=== PATIENT | female | born 1980 | race Caucasian/White ===

== ENCOUNTER 2019-07-25 14:05 | Emergency (ER) | payer SELFPAY ==
[2019-07-25 14:06] VITALS: BP 135/87; PULSE 97; RESP 17; O2SAT 100
--- NOTE | 2019-07-25 14:58 | ED.UPPEXIN ---
HPI - Extremity Injury (Upper) General Chief Complaint: Extremity Injury, Upper Stated Complaint: Sinus Issues, Left Shoulder Pain Time Seen by Provider: 07/25/19 14:55 Source: patient Mode of arrival: ambulatory Limitations: no limitations History of Present Illness HPI narrative: The pt is a 38 y/o female who presents to the ED c/o left shoulder pain onset 1.5 weeks ago. Pt states that when she raises her arm, it radiates to her left elbow. Pt states it feels like she is being stabbed with a pin. She states that the pain worsens when she lifts her arm, but has gained relief from being in her hot tub and 800 mg Ibuprofen. 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 She notes that she did fall yesterday while leaving her sister's house, and that she caught herself with her left hand. Pt reports that her left arm has been cold to the touch. She also reports sinus issues; mucus in her eyes, sinus drainage, resolved sore throat, chills, and diaphoresis. She denies any LUE discoloration. Pt notes that she has a PMHx of asthma, arthritis, DDD, spasms, and endometriosis. Pt also reports a PSHx of C6-C7 fusion and laparoscopies for endometriosis. Pt states that she smokes cigarettes and marijuana. MD complaint: injury to: left and shoulder Onset (ago): week(s) (1.5) Other injuries: none Handedness: left Relieving factors: medication (Ibuprofen 800 mg) and other (Sitting in her hot tub) Exacerbating factors: movement of extremity (LUE) Associated symptoms: other (LUE cold to touch, mucus in her eyes, sinus drainage, resolved sore throat, chills, and diaphoresis) Treatments prior to arrival: NSAIDS (Ibuprofen) Related Data Allergies Allergy/AdvReac Type Severity Reaction Status Date / Time erythromycin base Allergy Unknown Unknown Verified 07/25/19 14:11 ketorolac Allergy Unknown Unknown Verified 07/25/19 14:11 tramadol Allergy Unknown Unknown Verified 07/25/19 14:11 morphine AdvReac Unknown HEADACHE Verified 07/25/19 14:11 Review of Systems Review of Systems: All systems reviewed & are unremarkable except as noted in HPI and below Constitutional: Constitutional: Reports chills, Reports excessive sweating and Reports other (LUE cold to touch) Eyes: Eyes: Reports other ( mucus in her eyes ) ENT: Reports sore throat (Resolved) and Reports other (Sinus drainage) Musculoskeletal: Musculoskeletal: Reports arthralgias (Left shoulder) Integumentary/Breasts: Skin/Breast: Denies other (LUE discoloration) [facility] Past Medical History Medical History (Updated 07/25/19 @ 15:43 by Ashely Bocanegra MD) Arthritis Asthma Degenerative disc disease Endometriosis PTSD (post-traumatic stress disorder) Surgical History Surgical History (Updated 07/25/19 @ 15:19 by Cristian Alejandro) H/O laparoscopy for endometriosis S/P cervical spinal fusion C6-C7 Family History Family History (Updated 11/05/16 @ 13:20 by DOCTOR UNKNOWN) Other Cerebrovascular accident Social History Social History (Updated 07/25/19 @ 15:19 by Cristian Alejandro) Smoking status: Smoker, status unknown Alcohol intake: current Substance use type: marijuana Gender identity (if verbalized by the patient): Female Comments PCP: Francine Solnao [employer] Exam Const: General: cooperative, no acute distress and alert Nutritional Appearance: well nourished Orientation/consciousness: patient oriented x3 Limitations: no limitations HENMT: Mouth: Yes lip normal and Yes moist mucous membranes Resp: Effort & Inspection: normal respiratory effort Auscultation: wheezes (Occasional) Cardio: Rate: regular rate Rhythm: regular rhythm GI: GI Palp: Yes Soft to palpation and No Tenderness to palpation present (GI) Auscultation: normal bowel sounds Back/Spine/Pelvis: Cervical Spine: Cervical spine tenderness (Lower) Skin: General skin exam: normal color and other (BUE feel the same temperature [place])
--- NOTE | 2019-07-25 15:20 | PC.NURSE ---
pt refuses to answer past medical hx. pt states talking about past makes her anxious. pt only wants to discuss current shoulder pain. pt somewhat aggressive to nurse
== END 2019-07-25 15:59 | disposition home or self-care (01) ==
PROVIDERS: Emergency Provider Emergency Medicine; PCP Nurse Practitioner Family
DX: M54.12 Radiculopathy, cervical region (principal); M19.90 Unspecified osteoarthritis, unspecified site; J45.909 Unspecified asthma, uncomplicated; N80.9 Endometriosis, unspecified; Z98.1 Arthrodesis status; F17.210 Nicotine dependence, cigarettes, uncomplicated
CPT/HCPCS: 99283

== ENCOUNTER 2020-01-17 15:07 | Emergency (ER) | payer SELFPAY ==
[2020-01-17 15:32] VITALS: BP 95/64; PULSE 97; RESP 18; TEMP 37.4; O2SAT 96
[2020-01-17 16:58] VITALS: BP 114/87; PULSE 89; RESP 21; O2SAT 97
--- NOTE | 2020-01-17 17:13 | ED.GENADULT ---
HPI - General Adult General Chief complaint: Unspecified <PETRA Carr Last Filed: 01/17/20 17:34> Stated complaint: lump on left side <PETRA Carr Last Filed: 01/17/20 17:34> Time Seen by Provider: 01/17/20 16:35 <PETRA Carr Last Filed: 01/17/20 17:34> Source: patient <PETRA Carr Last Filed: 01/17/20 17:34> Mode of arrival: ambulatory <PETRA Carr Last Filed: 01/17/20 17:34> Limitations: no limitations <PETRA Carr Last Filed: 01/17/20 17:34> History of Present Illness HPI narrative: Patient presents with chief complaint of bites all over her body that presented after her nature hike on 01-09-20. Patient states that they state their few days. Patient reports that her dog was covered in multiple ticks or fleas. Patient states that the spots are not very itchy but when she popped them there was a burning sensation. Patient also wants evaluated a small cystlike area noted to her left outer breast yesterday. Patient states that she massage the area a lot yesterday and today when she woke up it was very sore. Patient wonders if it is due to her implants or wire bra. Patient states that she just ended her menstrual cycle and also has a history of fibro-cystic breast tissue. <Corinne Corona PA-C - Last Filed: 01/17/20 17:34> Related Data Allergies/adverse reactions: Allergies Allergy/AdvReac Type Severity Reaction Status Date / Time erythromycin base Allergy Unknown Unknown Verified 07/25/19 14:11 ketorolac Allergy Unknown Unknown Verified 07/25/19 14:11 tramadol Allergy Unknown Unknown Verified 07/25/19 14:11 morphine AdvReac Unknown HEADACHE Verified 07/25/19 14:11 <PETRA Carr Last Filed: 01/17/20 17:34> Review of Systems Review of Systems: Narrative: CONSTITUTIONAL: Denies fever, chills, or sweats. EYES: Denies visual changes, redness, or discharge. ENT: Denies rhinorrhea, congestion, sore throat, or otalgia. CARDIOVASCULAR: Reports breast mass denies chest pain, palpitations, or edema. RESPIRATORY: Denies cough or dyspnea. GASTROINTESTINAL: Denies abdominal pain, nausea, vomiting, or diarrhea. GENITOURINARY: Denies dysuria or hematuria. SKIN: Reports rash denies itching. MUSCULOSKELETAL: Denies back pain, joint pain, or myalgia. NEUROLOGIC: Denies headache, numbness, dizziness, or weakness. PSYCHIATRIC: Denies anxiety or depression. <Corinne Corona PA-C - Last Filed: 01/17/20 17:34> PMFSH Past Medical History Medical History: Medical History (Updated 01/17/20 @ 17:31 by Corinne Corona PA-C) Arthritis Asthma Degenerative disc disease Endometriosis PTSD (post-traumatic stress disorder) <Corinne Corona PA-C - Last Filed: 01/17/20 17:34> Surgical History Surgical History: Surgical History (Updated 07/25/19 @ 15:19 by Cristian Alejandro) H/O laparoscopy for endometriosis S/P cervical spinal fusion C6-C7 <Corinne Corona PA-C - Last Filed: 01/17/20 17:34> Family History Family History: Family History (Updated 11/05/16 @ 13:20 by DOCTOR UNKNOWN) Other Cerebrovascular accident <Corinne Corona PA-C - Last Filed: 01/17/20 17:34> Social History Social History: Social History (Updated 07/25/19 @ 15:19 by Cristian Alejandro) Smoking status: Smoker, status unknown Alcohol intake: current Substance use type: marijuana Gender identity (if verbalized by the patient): Female <Corinne Corona PA-C - Last Filed: 01/17/20 17:34> Exam Narrative: Exam Narrative: GENERAL: Well-appearing, well-nourished, and in no acute distress. HEAD: Normocephalic, atraumatic. EYES: PERRLA and EOMI. ENT: Nares clear, no rhinorrhea or epistaxis. Mucous membranes moist. Oropharynx without tonsillar hypertrophy exudate or other lesions. Bilateral TMs pearly logan nonbulging NECK: Supple. No adenopathy or masses. No carotid bruits or JVD CHEST: Approximately 1 cm mob
== END 2020-01-17 17:30 | disposition home or self-care (01) ==
PROVIDERS: Emergency Provider Emergency Medicine; PCP Nurse Practitioner Family
DX: N60.02 Solitary cyst of left breast (principal); T14.8XXA Other injury of unspecified body region, initial encounter; J45.909 Unspecified asthma, uncomplicated; N80.9 Endometriosis, unspecified; N60.19 Diffuse cystic mastopathy of unspecified breast; W57.XXXA Bitten or stung by nonvenomous insect and other nonvenomous arthropods, initial encounter
CPT/HCPCS: 99283; 99284

== ENCOUNTER 2020-02-15 09:49 | Emergency (ER) | payer SELFPAY ==
--- NOTE | ~2020-02-15 | CT_ITS ---
EXAMINATION: CT abdomen pelvis wo con DATE: 02/15/2020 10:54 INDICATION: Left flank pain TECHNIQUE: Computed tomography (CT) of the abdomen and pelvis was performed without intravenous contr ast. The dose-length product (DLP) was 171.44 mGy-cm. Automated exposure control and iterative recons truction technique were employed. COMPARISON: None FINDINGS: The lung bases are clear. The heart size is normal. The liver, spleen, pancreas, gallbladde r, and adrenal glands are normal. The right kidney is unremarkable. There is a 4 mm stone of the left kidney lower pole. There are phleboliths of the pelvis.. No hydronephrosis or hydroureter is seen. N o ureteral or bladder stones are identified. There is no free intraperitoneal gas or evidence of radha l obstruction. The appendix is normal. The visualized osseous structures are unremarkable. IMPRESSION: 1. 4 mm nonobstructing stone of the left kidney lower pole. Reviewed, dictated and finalized at location A.
[2020-02-15 10:10] VITALS: BP 93/50; PULSE 78; RESP 18; O2SAT 100
--- NOTE | 2020-02-15 10:22 | PC.NURSE ---
Patient refusing IV at this time, patient reports that she does not want that on her bill and that she can take oral medications if they are necessary.
[2020-02-15 10:43] LABS: Basophils Absolute Auto 0.1 K/mm3 (0.0-0.1); Basophils Percent Auto 0.5 % (0.2-1.2); Eosinophils Absolute Auto 0.1 K/mm3 (0-0.3); Eosinophils Percent Auto 0.8 % (0-4.4); Hematocrit 40.2 % (37.0-47.0); Hemoglobin 13.6 g/dL (12.0-15.0); Immature Granulocyte Absolute 0.08 K/mm3 (0.00-0.031); Immature Granulocyte Percent A 0.6 % (0-0.5); Lymphocytes Absolute Auto 1.38 K/mm3 (0.9-3.2); Lymphocytes Percent Auto 10.5 % (18.3-44.2); Mean Corpuscular HGB Conc 33.8 g/dl (32-36); Mean Corpuscular Hemoglobin 30.6 pg (26-34); Mean Corpuscular Volume 90.5 fl (80-100); Monocytes Percent Auto 7.8 % (2.6-8.5); Neutrophils Absolute Auto 10.5 K/mm3 (1.3-6.7); Neutrophils Percent Auto 79.8 % (45.5-73.1); Platelet Count Result 179 k/mm3 (150-375); Red Blood Count 4.44 M/mm3 (4.2-5.4); Red Cell Distribution Width 12.4 % (11.5-14.5); White Blood Count 13.2 K/mm3 (4.5-10.0)
[2020-02-15 10:47] LABS: Add Urine Microscopic? YES; Appearance Urine Cloudy (Clear); Bacteria Urine Trace /hpf; Bilirubin Urine Negative (Negative); Blood Urine 3+ (Negative); Color Urine Yellow (Yellow); Glucose Urine UA Negative (Negative); Ketones Urine Negative (Negative); Leukocyte Esterase Ur 3+ LEU/UL (Negative); Mucus Urine Heavy /lpf; Nitrate Urine Negative (Negative); Protein Urine 2+ mg/dL (Negative); RBC Urine >75 /hpf (0-2); Specific Grav Ur 1.015 (1.001-1.035); Squamous Epithelial Cell Urine Moderate /hpf (Few); Urobilinogen Urine Negative mg/dL (<2.0); WBC Urine >75 /hpf
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
[2020-02-15 10:51] LABS: Anion Gap 5 mmol/L (8-16); Blood Urea Nitrogen 8 mg/dL (7-17); Calcium 8.5 mg/dL (8.4-10.2); Carbon Dioxide 25 mmol/L (22-30); Chloride 105 mmol/L (98-107); Estimated Glomerular Filt Rate > 60; Glucose 108 mg/dL (65-105); Sodium 135 mmol/L (137-145)
[2020-02-15] MEDS: METOCLOPRAMIDE HCL INJ 10 MG/2 ML VIAL IV PUSH (11:49)
[2020-02-15] MEDS: SODIUM CHLORIDE 0.9% IV 1,000 ML 999 ML IV CONT (11:50)
[2020-02-15] MEDS: diphenhydrAMINE HCl INJ 50 MG/ML VIAL 25 MG IV PUSH (11:50)
[2020-02-15] MEDS: PHENAZOPYRIDINE HCL 100 MG TABLET 200 MG PO (12:17)
[2020-02-15] MEDS: metroNIDAZOLE 250 MG TABLET 2000 MG PO (12:18)
[2020-02-15 13:18] VITALS: BP 122/78; PULSE 78; RESP 18; O2SAT 99
== END 2020-02-15 13:19 | disposition home or self-care (01) ==
PROVIDERS: Emergency Medicine Emergency Medical Services; Emergency Provider Emergency Medicine; PCP Nurse Practitioner Family
DX: N39.0 Urinary tract infection, site not specified (principal); M19.90 Unspecified osteoarthritis, unspecified site; J45.909 Unspecified asthma, uncomplicated; N80.9 Endometriosis, unspecified; Z98.1 Arthrodesis status
CPT/HCPCS: 36415; 74176; 80048; 81001; 81025; 85025; 87077; 87086; 87088; 96361; 96365; 96367; 96375; 99284; A9270; J0131; J0696; J1200; J2765; J3360; J7030

== ENCOUNTER 2020-11-02 10:25 | Emergency (ER) | payer OTHER, SELFPAY ==
[2020-11-02 10:28] VITALS: BP 115/80; PULSE 80; RESP 16; TEMP 36.8; O2SAT 100
[2020-11-02 11:08] LABS: Add Urine Microscopic? YES; Appearance Urine Cloudy (Clear); Bacteria Urine Trace /hpf; Bilirubin Urine Negative (Negative); Blood Urine Negative (Negative); Color Urine Yellow (Yellow); Glucose Urine UA Negative (Negative); Ketones Urine 1+ mg/dL (Negative); Leukocyte Esterase Ur Negative LEU/UL (Negative); Mucus Urine Rare /lpf; Nitrate Urine Negative (Negative); Protein Urine Negative (Negative); Specific Grav Ur 1.017 (1.001-1.035); Squamous Epithelial Cell Urine Many /hpf (Few); Urobilinogen Urine Negative mg/dL (<2.0); WBC Urine 0-3 /hpf
[2020-11-02] MEDS: ONDANSETRON INJ 4 MG/2 ML VIAL IV PUSH (11:27)
[2020-11-02] MEDS: SODIUM CHLORIDE 0.9% IV 1,000 ML 999 ML IV CONT (11:27)
[2020-11-02] MEDS: FAMOTIDINE 20 MG/2 ML VIAL IV PUSH (11:29)
[2020-11-02] MEDS: diazePAM INJ (*CRX) 10 MG/2 ML SYRINGE 2.5 MG IV PUSH (11:30)
[2020-11-02 11:34] LABS: Basophils Absolute Auto 0.1 K/mm3 (0.0-0.1); Basophils Percent Auto 0.7 % (0.2-1.2); Eosinophils Percent Auto 0.2 % (0-4.4); Hematocrit 41.4 % (37.0-47.0); Hemoglobin 14.2 g/dL (12.0-15.0); Immature Granulocyte Absolute 0.04 K/mm3 (0.00-0.031); Immature Granulocyte Percent A 0.5 % (0-0.5); Lymphocytes Absolute Auto 1.38 K/mm3 (0.9-3.2); Lymphocytes Percent Auto 15.8 % (18.3-44.2); Mean Corpuscular HGB Conc 34.3 g/dl (32-36); Mean Corpuscular Volume 90.4 fl (80-100); Mean Platelet Volume 11.5 fl (7.4-10.4); Monocytes Absolute Auto 0.7 K/mm3 (0.1-0.6); Neutrophils Absolute Auto 6.5 K/mm3 (1.3-6.7); Neutrophils Percent Auto 74.8 % (45.5-73.1); Platelet Count Result 167 k/mm3 (150-375); Red Blood Count 4.58 M/mm3 (4.2-5.4); Red Cell Distribution Width 12.8 % (11.5-14.5); White Blood Count 8.7 K/mm3 (4.5-10.0)
[2020-11-02 13:21] LABS: Alanine Aminotransferase 12 U/L (4-35); Albumin Level 3.3 g/dL (3.5-5.1); Alkaline Phosphatase 50 U/L (38-126); Anion Gap 1 mmol/L (8-16); Aspartate Amino Transferase 25 U/L (14-36); Bilirubin,Total 0.2 mg/dL (0.2-1.3); Blood Urea Nitrogen 12 mg/dL (7-17); Calcium 8.1 mg/dL (8.4-10.2); Carbon Dioxide 26 mmol/L (22-30); Chloride 111 mmol/L (98-107); Estimated CRCL calculation 91 ml/min; Estimated Glomerular Filt Rate > 60; Glucose 75 mg/dL (65-105); Lipase 93 U/L (23-300); Potassium 3.8 mmol/L (3.4-5.0); Sodium 138 mmol/L (137-145)
--- NOTE | 2020-11-02 13:34 | ED.GENADULT ---
HPI - General Adult General Chief complaint: Nausea/Vomiting/Diarrhea Stated complaint: ABD PAIN Time Seen by Provider: 11/02/20 10:30 Source: patient and RN notes reviewed Mode of arrival: EMS Limitations: no limitations History of Present Illness HPI narrative: Patient is a 40-year-old female who presented to emergency department with nausea vomiting diarrhea that began acutely today patient noted cramping throughout the abdomen with multiple episodes of emesis and diarrhea patient denies sick contacts similar occurrence in the past did not take anything for symptoms presents per EMS appears uncomfortable but not distressed Related Data Allergies Allergy/AdvReac Type Severity Reaction Status Date / Time erythromycin base Allergy Unknown Unknown Verified 11/02/20 11:01 ketorolac Allergy Unknown Unknown Verified 11/02/20 11:01 tramadol Allergy Unknown Unknown Verified 11/02/20 11:01 morphine AdvReac Unknown HEADACHE Verified 11/02/20 11:01 Review of Systems Review of Systems: All systems reviewed & are unremarkable except as noted in HPI and below PMFSH Past Medical History Medical History (Updated 11/02/20 @ 13:37 by Gorge Delcid PA-C) Arthritis Asthma Degenerative disc disease Endometriosis PTSD (post-traumatic stress disorder) Surgical History Surgical History H/O laparoscopy for endometriosis S/P cervical spinal fusion C6-C7 Family History Family History Other Cerebrovascular accident Social History Social History Smoking status: Smoker, status unknown Alcohol intake: current Substance use type: marijuana Gender identity (if verbalized by the patient): Female Exam Narrative: Exam Narrative: GENERAL: Ill-appearing, well-nourished, uncomfortable and in no acute distress. HEAD: Normocephalic, atraumatic. EYES: PERRLA and EOMI. ENT: Nares clear, no rhinorrhea or epistaxis. Mucous membranes moist. CHEST: Clear to auscultation. No respiratory distress. No wheezes rales or rhonchi HEART: Regular rate and rhythm. No murmur heard. Normal peripheral pulses. ABDOMEN: Soft, generalized tenderness no rebound or guarding, nondistended, normal active bowel sounds. EXTREMITIES: Normal range of motion. No edema. SKIN: Warm, dry, no rash. NEURO: No focal deficits. Alert and oriented x3. PSYCH: Normal mood and affect. Course Course Emergency Course: Patient evaluated no high risk changes in the blood work or imaging will be tested for Covid advised to follow with primary care she is aware that primary care is the only way for her to obtain her results she agrees with this plan had marked improvement with medications and will be discharged home Consultations Consultation #1: Discussed case with primary care doctor's office who is aware of the case and will follow up with the patient Vital Signs Vital signs: Vital Signs Temperature 98.3 F 11/02/20 10:28 Pulse Rate 80 11/02/20 10:28 Respiratory Rate 16 11/02/20 10:28 Blood Pressure 115/80 11/02/20 10:28 Pulse Oximetry 100 11/02/20 10:28 Temperature 98.3 F 11/02/20 10:28 Pulse Rate 80 11/02/20 10:28 Respiratory Rate 16 11/02/20 10:28 Blood Pressure 115/80 11/02/20 10:28 Pulse Oximetry 100 11/02/20 10:28 Medical Decision Making [facility] Narrative Medical decision making narrative: Patient in the room in no distress aware of case findings treatment plan and diagnosis aware of case findings treatment plan and diagnosis will be discharged with follow-up with primary care agrees with this plan Vital Signs Vital Signs: Vital Signs Temperature 98.3 F 11/02/20 10:28 Pulse Rate 80 11/02/20 10:28 Respiratory Rate 16 11/02/20 10:28 Blood Pressure 115/80 11/02/20 10:28 Pulse Oximetry 100 11/02/20 10:28 Temperature 98.3 F 11/02/20 10:
[2020-11-02 14:10] VITALS: BP 103/81; PULSE 90; RESP 16; O2SAT 100
[2020-11-03 16:57] LABS: SARS-CoV-2 RNA PCR Negative
== END 2020-11-02 14:10 | disposition home or self-care (01) ==
PROVIDERS: Emergency Medicine Emergency Medical Services; Emergency Provider Emergency Medicine; PCP Nurse Practitioner Family
DX: R10.84 Generalized abdominal pain (principal); Z20.822 Contact with and (suspected) exposure to COVID-19; M19.90 Unspecified osteoarthritis, unspecified site; J45.909 Unspecified asthma, uncomplicated; N80.9 Endometriosis, unspecified
CPT/HCPCS: 36415; 80053; 81001; 81025; 83690; 85025; 96361; 96365; 96375; 99284; C9803; J0131; J2405; J3360; J7030; U0003; U0005

== ENCOUNTER 2021-05-05 12:02 | Emergency (ER) | payer OTHER, SELFPAY ==
[2021-05-05 12:15] VITALS: BP 109/85; PULSE 104; RESP 14; TEMP 36.4; O2SAT 94
--- NOTE | 2021-05-05 12:40 | ED.BACK ---
HPI - Back Pain/Injury General Chief Complaint: Fall Stated Complaint: bruising to legs after couch falling on her Time Seen by Provider: 05/05/21 12:21 Source: patient Mode of arrival: ambulatory Limitations: no limitations History of Present Illness HPI Narrative: Patient is a 40-year-old female complaining of body aches, right lower back pain, bilateral knee pain, bilateral upper extremity pain, after lifting a heavy couch while trying to move it yesterday. Patient denies any fall or direct injury. Patient denies any weakness, numbness, or incontinence. Timing: constant Pain scale (0-10): 8 Quality: aching Exacerbating factors: movement and lifting Relieving factors: immobilization Context: while lifting Associated symptoms: denies other symptoms Related Data Allergies Allergy/AdvReac Type Severity Reaction Status Date / Time erythromycin base Allergy Unknown Unknown Verified 11/02/20 11:01 ketorolac Allergy Unknown Unknown Verified 11/02/20 11:01 tramadol Allergy Unknown Unknown Verified 11/02/20 11:01 morphine AdvReac Unknown HEADACHE Verified 11/02/20 11:01 Review of Systems Review of Systems: All systems reviewed & are unremarkable except as noted in HPI and below Constitutional: Constitutional: Reports as per HPI [facility] Past Medical History Medical History (Updated 05/05/21 @ 12:44 by Sanchez Regalado MD) Arthritis Asthma Degenerative disc disease Endometriosis PTSD (post-traumatic stress disorder) Surgical History Surgical History H/O laparoscopy for endometriosis S/P cervical spinal fusion C6-C7 Family History Family History Other Cerebrovascular accident Social History Social History Smoking status: Smoker, status unknown Alcohol intake: current Substance use type: marijuana Gender identity (if verbalized by the patient): Female Exam Const: General: cooperative, healthy appearing, comfortable, no acute distress, well developed, alert and awake; No confusion Orientation/consciousness: oriented to person, oriented to place, oriented to time, patient oriented x3 and No confusion Limitations: no limitations HENMT: Head: normal to inspection, normocephalic and atraumatic Ears: hearing grossly normal bilaterally, TM normal on the right and TM normal on the left General nose exam: Normal external nose present, Normal nares present and No nasal discharge present Face and sinus: normal facial exam Mouth: Yes Normal oral and palatal mucosa present, Yes lip normal, Yes tongue normal and Yes oropharynx normal Throat: posterior oropharynx normal, tonsils normal and uvula midline Eyes: General: appearance normal, both eyes and all related structures Pupils: Equal, round and reactive pupils present EOM: EOMs intact bilaterally Neck: Neck: normal visual inspection, full ROM, no lymphadenopathy and no meningeal signs Chest: Chest palpation & inspection: normal inspection of the chest Resp: Effort & Inspection: normal respiratory effort, able to speak in complete sentences, no respiratory distress and not tachypneic Auscultation: clear to auscultation bilaterally, no crackles, no rales, no rhonchi and no wheezes Cardio: Rate: regular rate Rhythm: regular rhythm GI: Inspection: normal to inspection GI Palp: No abdominal tenderness, Yes Soft to palpation, No Tenderness to palpation present (GI), No Guarding due to palpation present (GI), No Rigid due to palpation and No Rebound tenderness present Auscultation: normal bowel sounds : General: Yes no CVA tenderness Back/Spine/Pelvis: Other: Tenderness on palpation right lumbar paraspinal area, pain on range of motion, negative for vertebral tenderness Skin: General skin exam: normal color, no rashes or lesions noted, elasticity normal and turgor normal Neuro: General: o
[2021-05-05] MEDS: DEXAMETHASONE SOD PHOS INJ 4 MG/ML VIAL 10 MG IM (12:57)
[2021-05-05] MEDS: diazePAM (*CRX) 5 MG TABLET PO (12:57)
== END 2021-05-05 13:08 | disposition home or self-care (01) ==
PROVIDERS: Emergency Provider Emergency Medicine; PCP Nurse Practitioner Family
DX: S39.012A Strain of muscle, fascia and tendon of lower back, initial encounter (principal); J45.909 Unspecified asthma, uncomplicated; N80.9 Endometriosis, unspecified; Z98.1 Arthrodesis status; X50.0XXA Overexertion from strenuous movement or load, initial encounter
CPT/HCPCS: 81025; 96372; 99283; A9270; J1100

== ENCOUNTER 2021-09-15 22:35 | Emergency (ER) | payer OTHER, SELFPAY ==
[2021-09-15 22:40] VITALS: BP 100/63; PULSE 116; RESP 20; TEMP 38.6; O2SAT 100
--- NOTE | 2021-09-15 22:53 | PC.NURSE ---
Pt leaving from triage room states I am leaving and going to [place] . Pt states I can't wait in the waiting room I need something to break my fever. Pt wants a room to lay down pt states I don't understand I am sick I cant wait in the waiting room . Rn informed pt currently I have no bed for her to lay down in I can ask a provider to put in medications to help with the fever but unfortunately I would still have to put her in the waiting room after medications. Pt became loud and yelling at RN then left the triage room.
== END 2021-09-15 23:21 | disposition left against medical advice (07) ==
PROVIDERS: PCP Nurse Practitioner Family
DX: R51.9 Headache, unspecified (principal)
CPT/HCPCS: 99199

== ENCOUNTER 2022-01-23 11:47 | Emergency (ER) | payer OTHER, SELFPAY ==
--- NOTE | ~2022-01-23 | XR_ITS ---
EXAMINATION: XR hip RT min 3V w AP pelvis DATE: 01/23/2022 12:42 INDICATION: Right hip pain. TECHNIQUE: An anteroposterior pelvis and 3 views of right hip were obtained. COMPARISON: Pelvis radiograph 03/03/2015 FINDINGS: Bone alignment is normal. No fracture. The hip joint spaces are normal. IMPRESSION: 1. No fracture. Reviewed, dictated and finalized at location A. IMPRESSION: 1. No fracture.
--- NOTE | ~2022-01-23 | XR_ITS ---
EXAMINATION: XR ribs RT 2V w CXR 2V DATE: 01/23/2022 12:43 INDICATION: Right chest pain. TECHNIQUE: Frontal and lateral views of the chest and 2 views on 3 radiographs of the right ribs were obtained. COMPARISON: chest two views 08/03/18 FINDINGS: CHEST TWO VIEWS: There is a small right pneumothorax. No pneumonia or pleural effusion. The heart siz e is normal. There are changes of anterior fusion procedure in cervical spine. Breast implants are no carmelo. RIGHT RIBS: There are old healed fractures of right 9th and 10th ribs. IMPRESSION: 1. Small right pneumothorax. I called this result to Dr. Weinstein. Reviewed, dictated and finalized at location A.
[2022-01-23 11:55] VITALS: BP 99/75; PULSE 93; RESP 16; TEMP 36.5; O2SAT 100
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
== END 2022-01-23 13:49 | disposition home or self-care (01) ==
PROVIDERS: Emergency Provider Emergency Medicine; PCP Nurse Practitioner Family
DX: S20.221A Contusion of right back wall of thorax, initial encounter (principal); S27.0XXA Traumatic pneumothorax, initial encounter; J45.909 Unspecified asthma, uncomplicated; M19.90 Unspecified osteoarthritis, unspecified site; F31.9 Bipolar disorder, unspecified; F43.10 Post-traumatic stress disorder, unspecified; Z98.1 Arthrodesis status; W10.9XXA Fall (on) (from) unspecified stairs and steps, initial encounter
CPT/HCPCS: 71046; 71100; 73502; 99284

== ENCOUNTER 2024-06-09 13:09 | Emergency (ER) | payer OTHER, SELFPAY ==
--- NOTE | ~2024-06-09 | US_ITS ---
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 FINDINGS: 9 para 4 Estimated date of delivery by last menstrual period is 02/12/2025 The uterus measures 9.8 x 4.3 x 6.5 cm. The endometrium measures 11.3 mm. A cystic structure, possibly a early gestational sac is identified within the lower margin of the antonio arlin. This structure is too small for dates measuring 3.2 x 2.8 mm. No pole is identified. The right ovary measures 2.6 x 1.4 x 1.7 cm. Despite prolonged interrogation the left ovary was not visualized. IMPRESSION: Cystic structure within the lower margin of the uterus, too small for dates for which short-term foll ow-up is recommended. Reviewed, dictated and finalized at location A. TURBINE OPERATOR IMPRESSION: Cystic structure within the lower margin of the uterus, too small for dates for which short-term follow-up is recommended.
[2024-06-09 13:13] VITALS: BP 127/88; PULSE 113; RESP 18; TEMP 36.4; O2SAT 99
[2024-06-09 13:33] LABS: BEDSIDEPREGUCG Positive (Negative)
[2024-06-09 14:37] LABS: Basophils Absolute Auto 0.1 K/mm3 (0.0-0.1); Basophils Percent Auto 0.7 % (0.2-1.2); Eosinophils Absolute Auto 0.1 K/mm3 (0-0.3); Eosinophils Percent Auto 1.2 % (0-4.4); Hematocrit 41.6 % (37.0-47.0); Hemoglobin 14.1 g/dL (12.0-15.0); Immature Granulocyte Absolute 0.03 K/mm3 (0.00-0.031); Immature Granulocyte Percent A 0.3 % (0-0.5); Lymphocytes Absolute Auto 2.09 K/mm3 (0.9-3.2); Lymphocytes Percent Auto 24.1 % (18.3-44.2); Mean Corpuscular HGB Conc 33.9 g/dl (32-36); Mean Corpuscular Hemoglobin 30.3 pg (26-34); Mean Corpuscular Volume 89.5 fl (80-100); Mean Platelet Volume 10.5 fl (7.4-10.4); Monocytes Absolute Auto 0.9 K/mm3 (0.1-0.6); Monocytes Percent Auto 9.9 % (2.6-8.5); Neutrophils Absolute Auto 5.6 K/mm3 (1.3-6.7); Neutrophils Percent Auto 63.8 % (45.5-73.1); Platelet Count Result 215 k/mm3 (150-375); Red Blood Count 4.65 M/mm3 (4.2-5.4); Red Cell Distribution Width 12.4 % (11.5-14.5); White Blood Count 8.7 K/mm3 (4.5-10.0)
[2024-06-09 14:38] LABS: Add Urine Microscopic? NO; Appearance Urine Clear (Clear); Bilirubin Urine Negative (Negative); Blood Urine Negative (Negative); Color Urine Yellow (Yellow); Glucose Urine UA Negative (Negative); Ketones Urine Negative (Negative); Leukocyte Esterase Ur Negative LEU/UL (Negative); Nitrate Urine Negative (Negative); Protein Urine Negative (Negative); Specific Grav Ur 1.004 (1.001-1.035); Urobilinogen Urine 0.2 mg/dL (<2.0)
[2024-06-09 14:46] LABS: Alanine Aminotransferase 10 U/L (6-35); Albumin Level 4.6 g/dL (3.5-5.1); Alkaline Phosphatase 65 U/L (38-126); Anion Gap 3 mmol/L (4-12); Aspartate Amino Transferase 23 U/L (14-36); Bilirubin,Total 0.3 mg/dL (0.2-1.3); Blood Urea Nitrogen 9 mg/dL (7-17); Calcium 9.2 mg/dL (8.4-10.2); Carbon Dioxide 29 mmol/L (22-30); Chloride 107 mmol/L (98-107); Estimated CRCL calculation 88 ml/min; Estimated Glomerular Filt Rate > 60; Glucose 91 mg/dL (65-110); Lipase 122 U/L (23-300); Potassium 3.8 mmol/L (3.4-5.0); Sodium 139 mmol/L (137-145)
[2024-06-09 15:03] LABS: Beta HCG Quantitative 322.86 mIU/ML
--- NOTE | 2024-06-09 15:20 | ED_ITS ---
HPI - Recheck/Abnormal Lab/Rx General Chief Complaint: Recheck/Abnormal Lab/Rx Stated Complaint: requested verification Time Seen by Provider: 06/09/24 13:20 History of Present Illness HPI narrative: 43-year-old female presenting with concerns for . States her period is late. She took a couple of tests at home and they were positive. She complains of acute on chronic lower back pain. No vaginal bleeding, abdominal pain, vomiting, dysuria. Related Data Home Medications ?Medication ?Instructions ?Recorded ?Confirmed ?Last Taken ?Type diazepam 2 mg tablet mg 01/23/22 01/29/22 Unknown History duloxetine 20 mg capsule,delayed mg PO 01/23/22 01/29/22 Unknown History release tizanidine 2 mg tablet mg 01/23/22 01/29/22 Unknown History Allergies Allergy/AdvReac Type Severity Reaction Status Date / Time erythromycin base Allergy Unknown Unknown Verified 01/29/22 15:16 ketorolac Allergy Unknown Unknown Verified 01/29/22 15:16 tramadol Allergy Unknown Unknown Verified 01/29/22 15:16 Review of Systems 2 Review of Systems: All systems reviewed & are unremarkable except as noted in HPI and below PMFSH Past Medical History Medical History (Updated 06/09/24 @ 16:31 by Sondra Guillen MD) Asthma Endometriosis Degenerative disc disease Arthritis PTSD (post-traumatic stress disorder) Surgical History Surgical History H/O laparoscopy for endometriosis S/P cervical spinal fusion C6-C7 Family History Family History Other Cerebrovascular accident Social History Social History Smoking status: Never smoker Alcohol intake: current Substance use type: marijuana Gender identity (if verbalized by the patient): Female Exam 2 Narrative: GENERAL: Well-appearing, well-nourished, and in no acute distress. HEAD: Normocephalic, atraumatic. EYES: PERRLA and EOMI. ENT: Mucous membranes moist. NECK: Supple. CHEST: No respiratory distress. HEART: Regular rate and rhythm ABDOMEN: Soft, nontender, nondistended EXTREMITIES: Normal range of motion. SKIN: Warm, dry, no rash. NEURO: No focal deficits. Alert and oriented x3. PSYCH: Normal mood and affect. Course Vital Signs Vital signs: Vital Signs Temperature 97.6 F 06/09/24 13:13 Pulse Rate 113 H 06/09/24 13:13 Respiratory Rate 18 06/09/24 13:13 Blood Pressure 127/88 06/09/24 13:13 Pulse Oximetry 99 06/09/24 13:13 Temperature 97.6 F 06/09/24 13:13 Pulse Rate 92 06/09/24 16:23 Respiratory Rate 20 06/09/24 16:23 Blood Pressure 104/73 06/09/24 16:23 Pulse Oximetry 99 06/09/24 16:23 MDM - Recheck/Abnormal Lab/Rx MDM Narrative Medical decision making narrative: 43-year-old female presenting with concerns for early . Vitals are stable. Exam remarkable for the above. blood work with mildly elevated beta hCG. Ultrasound shows no definitive intrauterine gestation. Her last menstrual period was approximately 4 weeks ago. Suspect this is all very early . She is safe for outpatient management. Will send in for vitamins. States that she already has an OB and she will follow-up with them. Appropriate return precautions given. Discharged in stable condition. Lab Data 06/09/24 14:30 06/09/24 14:30 Labs: Lab Results 06/09/24 06/09/24 06/09/24 Range/Units 13:22 14:30 14:30 WBC 8.7 (4.5-10.0) K/mm3 RBC 4.65 (4.2-5.4) M/mm3 Hgb 14.1 (12.0-15.0) g/dL Hct 41.6 (37.0-47.0) % MCV 89.5 (80-100) fl MCH 30.3 (26-34) pg MCHC 33.9 (32-36) g/dl RDW 12.4 (11.5-14.5) % Plt Count 215 (150-375) k/mm3 MPV 10.5 H (7.4-10.4) fl Immature Gran % (Auto) 0.3 (0-0.5) % Neut % (Auto) 63.8 (45.5-73.1) % Lymph % (Auto) 24.1 (18.3-44.2) % [place] % (Auto) 9.9 H (2.6-8.5) % Eos % (Auto) 1.2 (0-4.4) % Baso % (Auto) 0.7 (0.2-1.2) % Lymph # (Auto) 2.09 (0.9-3.2) K/mm3 [place] # (Auto) 0.9 H (0.1-0.6) K/mm3 Eos # (Auto) 0.1 (0-0.3) K/mm3 Baso # (Auto) 0.1 (0.0-0.1) K/mm3 Abs Immat Gran (auto) 0.03 (0.00-0.031) K/mm3 Absolute Neuts (auto) 5.6 (1.3-6.7) K/mm3 Absolute Nucleated RBC 0.000 (0.0-0.012) K/mm3 Nucleated RBC % 0.0 (0.0-0.2) % Sodium 139 (137-145) mmol/L Potassium 3.8 (3.4-5.0) mmol/L Chloride 107 (98-107) mmol/L Carbon Dioxide 29 (22-30) mmol/L Anion Gap 3 L (4-12) mmol/L BUN 9 (7-17) mg/dL Creatinine 0.70 (0.7-1.0) mg/dL Estim Creat Clear Calc 88 ml/min Estimated GFR > 60 (59 - ) Glucose 91 (65-110) mg/dL Calcium 9.2 (8.4-10.2) mg/dL Total Bilirubin 0.3 (0.2-1.3) mg/dL AST 23 (14-36) U/L ALT 10 (6-35) U/L Alkaline Phosphatase 65 (38-126) U/L Total Protein 7.0 (6.3-8.2) g/dL Albumin 4.6 (3.5-5.1) g/dL Lipase 122 (23-300) U/L Beta HCG, Quant 322.86 Cancelled mIU/ML Urine Color Yellow (Yellow) Urine Appearance Clear (Clear) Urine pH 7.0 (5.0-9.0) Ur Specific [place] 1.004 (1.001-1.035) Urine Protein Negative (Negative) mg/dL Urine Glucose (UA) Negative (Negative) mg/dL Urine Ketones Negative (Negative) mg/dL Ur Blood (Man) Negative (Negative) Urine Nitrate Negative (Negative) Urine Bilirubin Negative (Negative) Urine Urobilinogen 0.2 (<2.0) mg/dL Leukocyte Esterase Rfl Negative (Negative) DENNIS/UL POC Urine HCG, Qual Positive (Negative) Blood Type O Positive Antibody Screen Negative Imaging Data Radiologist's impression: ITS Impressions Obstetrics Ultrasound 06/09/24 15:08 IMPRESSION: Cystic structure within the lower margin of the uterus, too small for dates for which short-term follow-up is recommended. Critical Care Time Critical Care Time Critical Care Time: No Discharge Plan Discharge Clinical Impression: Early stage of Patient Disposition: Home, Self-Care Condition: Stable Instructions: Antibiotic Form, (ED) Additional Instructions: your workup today is consistent with very early . Follow-up closely with your OB. Please take the vitamins as prescribed. Do not take ibuprofen or naproxen, you may take Tylenol. If your symptoms worsen or other concerning symptoms arise, please return to the ER. Patient Language: Slovenian Prescriptions: No Action tizanidine 2 mg tablet diazepam 2 mg tablet duloxetine 20 mg capsule,delayed release(DR/EC) PO methocarbamol 500 mg tablet 500 mg PO Q6H 5 Days Qty: 20 0RF lidocaine 5 % adhesive patch,medicated 1 patch topical DAILY 10 Days Qty: 15 0RF Rx Instructions: leave on most painful area for up to 12 hrs Follow-up/Referrals: SIVA,ENID CARBAJAL [Primary Care Provider] -
[2024-06-09 16:23] VITALS: BP 104/73; PULSE 92; RESP 20; O2SAT 99
== END 2024-06-09 16:36 | disposition home or self-care (01) ==
PROVIDERS: Emergency Provider Emergency Medicine; PCP Nurse Practitioner Family
DX: Z32.01 Encounter for pregnancy test, result positive (principal)
CPT/HCPCS: 36415; 76801; 76817; 80053; 81003; 81025; 83690; 84702; 85025; 86850; 86900; 86901; 99284

== ENCOUNTER 2024-11-21 10:52 | Emergency (ER) | payer OTHER, SELFPAY ==
[2024-11-21 11:03] VITALS: BP 101/61; PULSE 75; RESP 16; TEMP 36.4; O2SAT 100
--- NOTE | 2024-11-21 11:35 | ED_ITS ---
HPI - Eye Problem General Chief complaint: Eye Problems Stated complaint: Left Eye Irritation Time Seen by Provider: 11/21/24 11:10 Source: patient, family and RN notes reviewed Mode of arrival: ambulatory Limitations: no limitations History of Present Illness HPI Narrative: 44-year-old female presents Express Care with spouse complain of left upper eyelid swelling and pain. Patient believe she has a stye. Patient Stated started 2 days ago. She says she was out in the garden and not sure she got something in her eye. Patient denies any foreign body sensation, redness, or pain in her eye. Patient reports some blurry vision in her left eye. Patient says the swelling of her left upper eyelid is worse. Patient use the left over prescription of neomycin with no relief. Patient has not used any warm com presses. Patient is currently 23 weeks . Related Data Home Medications ?Medication ?Instructions ?Recorded ?Confirmed ?Last Taken ?Type duloxetine 20 mg capsule,delayed mg PO 01/23/22 07/29/24 Unknown History release medical marijuana .Route 07/29/24 07/29/24 Unknown History vitamin#30 30 mg iron-10 cap PO 07/29/24 07/29/24 Unknown History mg iron-folic acid 1 mg-omg3 capsule Allergies Allergy/AdvReac Type Severity Reaction Status Date / Time erythromycin base Allergy Unknown Unknown Verified 11/21/24 11:09 ketorolac Allergy Unknown Unknown Verified 11/21/24 11:09 tramadol Allergy Unknown Unknown Verified 11/21/24 11:09 buspirone (From BuSpar) Allergy Unknown Verified 11/21/24 11:09 Review of Systems Review of Systems: CONSTITUTIONAL: Denies fever, chills, or sweats. EYES: Denies visual changes, redness, or discharge. Positive for left upper eyelid swelling and pain blurry vision. ENT: Denies rhinorrhea, congestion, sore throat, or otalgia. CARDIOVASCULAR: Denies chest pain, palpitations, or edema. RESPIRATORY: Denies cough or dyspnea. GASTROINTESTINAL: Denies abdominal pain, nausea, vomiting, or diarrhea. GENITOURINARY: Denies dysuria or hematuria. SKIN: Denies rash or itching. MUSCULOSKELETAL: Denies back pain, joint pain, or myalgia. NEUROLOGIC: Denies headache, numbness, or weakness. PSYCHIATRIC: Denies anxiety or depression. All other systems reviewed are negative, except as documented in HPI. [facility] Past Medical History Medical History Bulging disc Hx of spinal stenosis Hx of bipolar disorder Asthma Endometriosis Degenerative disc disease Arthritis PTSD (post-traumatic stress disorder) Surgical History Surgical History Hx of heart surgery H/O breast augmentation H/O laparoscopy for endometriosis S/P cervical spinal fusion C6-C7 Family History Family History Father Carcinoma of colon Grandparent Brain aneurysm Other Cerebrovascular accident Social History Social History Smoking status: Current every day smoker Tobacco type: e-cigarettes/vaping Alcohol intake: former Substance use: current Substance use type: marijuana Gender identity (if verbalized by the patient): Female Comments At the time of my signature, I reviewed and agree with the nursing past medical, surgical, social, and family history. There is no relevant family history pertinent to the patient complaint. Exam Narrative: GENERAL: This is a well-nourished, well-developed adult, in no apparent distress. They are non ill-appearing, nontoxic appearing. HEAD: normocephalic, atraumatic. EYES: Sclera clear/white. Conjunctiva normal. Vision is grossly intact. Extraocular movements intact. Pupils PERRLA. No exudate. Left upper eyelid erythematous and tender. No area of fluctuance. Left lower eyelid normal. Right upper and lower eyelid normal. Visual acuity is is normal EARS: External ears normal Hearing grossly intact. NOSE: External nose normal THROAT: Mucous membranes moist, NECK: Neck supple, CARDIOVASCULAR: Regular rate and rhythm RESPIRATORY: Respiratory rate normal, respiratory effort nonlabored, no respiratory distress SKIN: warm, Dry, intact with no suspicious lesions or rash, good texture and turgor. NEURO: awake, alert, and oriented to person, place and time. There were no obvious focal neurologic abnormalities. EXTREMITIES: No joint tenderness, effusion, or edema noted. Course Course Emergency Course: Portions of this record may have been created with voice recognition software Level of Care: Express Care Visit Vital Signs Vital signs: Vital Signs Temperature 97.6 F 11/21/24 11:03 Pulse Rate 75 11/21/24 11:03 Respiratory Rate 16 11/21/24 11:03 Blood Pressure 101/61 11/21/24 11:03 Pulse Oximetry 100 11/21/24 11:03 Oxygen Delivery Room Air 11/21/24 11:03 Temperature 97.6 F 11/21/24 11:03 Pulse Rate 75 11/21/24 11:03 Respiratory Rate 16 11/21/24 11:03 Blood Pressure 101/61 11/21/24 11:03 Pulse Oximetry 100 11/21/24 11:03 Oxygen Delivery Room Air 11/21/24 11:03 Reviewed MDM - Eye Problem MDM Narrative Medical decision making narrative: Patient's symptoms consistent with external hordeolum. No evidence of injury or infection to eye. Recommend warm compresses. Will prescribe bacitracin ointment for infection prevention. Patient is allergic to erythromycin. Discussed physical exam findings. Advised supportive measures and signs/symptoms to go to the ER. Pt is appropriate for outpt treatment and f/u. Differential Diagnosis Differential diagnosis: Likely conjunctivitis and other (Blepharitis, stye, chalazion) Critical Care Time Critical Care Time Critical Care Time: No Discharge Plan Discharge Clinical Impression: Hordeolum Qualifiers: Hordeolum type: externum Laterality: left Eyelid: upper Qualified Code(s): H 00.014 - Hordeolum externum left upper eyelid Patient Disposition: Home Condition: Stable Instructions: Alfredo Adam (ED) Additional Instructions: Apply warm, moist compresses on the affected area frequently (for 5 to 10 minutes three to five times per day) in order to help with drainage. Massage and gentle wiping of the affected eyelid after the warm compress can also help with drainage. You can use baby shampoo to wash the eye area Avoid wearing eye makeup or contact lenses Use antibiotic ointment as directed. Take medication as directed. If the lesion does not improve within one to two weeks, please follow up with an public address system operator for further management. Patient Language: Tunisian Prescriptions: New bacitracin 500 unit/gram ointment 1 applic LEFT EYE BID 7 Days Qty: 3.5 0RF No Action PNV #[id number] 30 mg iron-10 mg iron-1 mg capsule PO medical marijuana .Route Rx Instructions: as directed duloxetine 20 mg capsule,delayed release(DR/EC) PO Follow-up/Referrals: SIVA,EIND CARBAJAL [Primary Care Provider] - Time of Disposition: 11:17
== END 2024-11-21 11:20 | disposition home or self-care (01) ==
PROVIDERS: PCP Nurse Practitioner Family
DX: O99.891 Other specified diseases and conditions complicating pregnancy (principal); H00.014 Hordeolum externum left upper eyelid; Z3A.23 23 weeks gestation of pregnancy; O99.332 Smoking (tobacco) complicating pregnancy, second trimester; F17.290 Nicotine dependence, other tobacco product, uncomplicated; O99.322 Drug use complicating pregnancy, second trimester; F12.90 Cannabis use, unspecified, uncomplicated; O99.512 Diseases of the respiratory system complicating pregnancy, second trimester; J45.909 Unspecified asthma, uncomplicated; O99.282 Endocrine, nutritional and metabolic diseases complicating pregnancy, second trimester; N80.9 Endometriosis, unspecified; M19.90 Unspecified osteoarthritis, unspecified site; M48.00 Spinal stenosis, site unspecified
CPT/HCPCS: 99213; G0463

== ENCOUNTER 2025-01-26 13:07 | Observation (INO) | payer OTHER, SELFPAY ==
--- OUTSIDE RECORDS SUMMARY | 2025-01-26 13:32 | XMS_ITS | Encounter Summary ---
Author Organization [facility] Address [address] [place] [id number] Care Team Providers Care Aerospace Project Engineer Name Role Phone Francine Solano CASIE Primary Care Provider [phone] Encounter Details Date Type Department Care Team (Late st Contact Info) Description 05/09/2022 Cystinosis Research Foundationt Message Enc [facility] Family & Internal Medicine [address] [id number] Taylor Sal NP Culture results Social History Tobacco Use Types Packs/Day Years Used Date Smoking Tobacco: Every Day Cigarettes 0.5 17 Smokeless Tobacco: Never Comments:provider to licensed professional counselor // Patient down to 1 cig per day 02/01/22 Alcohol Use Standard Drinks/Week Comments Yes 0 (1 standard drink = 0.6 oz pur e alcohol) occassional PHQ-2 Answer Date Recorded PHQ-2 Score - If the patient scores above 3, please move on to questions 3-9 1 09/21/2021 Comments No Sex and Gender Information Value Date Recorded Sex Assigned at Female 01/08/2025 2:02 PM CDT Legal Sex Female 6:52 PM CDT Gender Identity Not on file Sexual Orientation Not on file COVID-19 Exposure Response Date Recorded In the last 10 days, have yo u been in contact with someone who was confirmed or suspected to have Coronavirus/COVID-19? 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
--- OUTSIDE RECORDS SUMMARY | 2025-01-26 13:32 | XMS_ITS | Encounter Summary ---
Author Organization [facility] Address [address] [place] [address] Care Team Providers Care Manager Part Name Role Phone Francine Solano CASIE Primary Care Provider [phone] Reason for Visit * Auth/Cert (Routine) Specialty Diagnoses / Procedures Referred By Contac t Referred To Contact Diagnoses Myofascial pain myalgia Procedures INJECT TRIGGER POINT, 1 OR 2 INJECT TRIGGER POINT, 1 OR 2 INJECTION TRIGGER POINT-lumbar Ebony Cedeno MD [facility] [address] [place] [address] Phone: tel: fax: Referral ID Status Reason Start Date Expiration Date Visits Re quested Visits Authorized [id number] 1 1 Encounter Details Date Type Department Care Team (Late st Contact Info) Description 07/07/2024 Hospital Encounter [facility] [place], [place] [id number] Ebony Cedeno MD [facility] [address] [place] [id number] Social History Tobacco Use Types Packs/Day Years Used Date Smoking Tobacco: Former Cigarettes 0.5 17 Smokeless Tobacco: Never Comments:vapes Alcohol Use Standard Drinks/Week Comments Not Currently 0 (1 standard drink = 0.6 oz pur e alcohol) PHQ-2 Answer Date Recorded Patient Health Questionnaire-2 Score 0 01/08/2025 Estimated Date of Delivery Comme nts Yes 02/11/2025 Sex and Gender Information Value Date Recorded Sex Assigned at Female 01/08/2025 2:02 PM CDT Legal Sex Female 6:52 PM CDT Gender Identity Not on file Sexual Orientation Not on file documented as of this encounter Functional Status * Over the past 2 weeks, how often have you been bothered by any of the following problems? Question Answer Date of Assessment Author Status Little interest or pleasure in doing things Not at all 01/08/2025 2:01 PM CDT Iris Hale MA Active Feeling down, depressed, or hopeless Not at all 01/08/2025 2:01 PM CDT Iris Hale MA Active Patient Health Questionnaire-2 Score 0 01/08/2025 2:01 PM CDT Iris Hale MA Active * Calculated C-SSRS Risk Score (Lifetime/Recent) Answer Date of Assessment Author Status No Risk Indicated 06/01/2024 12:05 PM Violeta Cruz RN Active * Anderson Suicide Severity Rating Scale (Screener/Recent Self-Report) Question Answer Date of Assessment Author Status 1. Wish to be (Past 1 Month) No 06/01/2024 12:05 PM Carolin Cruz RN Act brenden 2. Non-Specific Active Suicidal Thoughts (Past 1 Month) No 06/01/2024 12:05 PM Carolin Cruz RN Act b[place] 6. Suicidal Behavior (Lifetime) No 06/01/2024 12:05 PM Carolin Cruz RN Act brenden documented as of this encounter Plan of Treatment Not on file documented as of this encounter Visit Diagnoses Diagnosis Myofascial pain- Primary Mylagia and myositis, unspecified documented in this encounter Admitting Diagnoses Diagnosis Myofascial pain Mylagia and myositis, unspecified documented in this encounter Additional Health Concerns Assessment Noted Time PHQ-9 Depression Total Score: 2 10/07/19 24 3:45 PM CDT documented as of this encounter Care Teams Manager Part Relationship Specialty Start Date End Date Francine Solano FNP [address] [place] [address] PCP - General 12/06/16 documented as of this encounter
--- OUTSIDE RECORDS SUMMARY | 2025-01-26 13:32 | XMS_ITS | Encounter Summary ---
Author Organization [facility] Address [address] [place] [address] Care Team Providers Care Chief Of Production Name Role Phone Francine Solano Primary Care Provider [phone] Reason for Referral * Consultation (Routine) - Closed Specialty Diagnoses / Procedures Referred By Kalli downing Referred To Contact Neurological Surgery Diagnoses Degeneration of intervertebral disc of lumbar region with discogenic back pain and lower extremity pain Kelly Maldonado APRN-CNP [address] [place] [address] Phone: tel: fax: [facility] - Neurosurgery [address] [place] [address] [place] [address] Phone: tel: fax: Referral ID Status Reason Start Date Expiration Date V isits Requested Visits Authorized [id number] Closed Specialty Services Required 05/05/2024 05/05/2025 1 1 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 Encounter Details Date Type Department Care Team (Latest Contact Info) Description 05/05/2024 Transcribe Orders [facility] - Centralized Scheduling [address] [place] [phone] Kelly Maldonado APRN-CNP [address] [place] [address] Degeneration of intervertebral disc of lumbar region with discogenic back pain and lower extremity pain Social History Tobacco Use Types Packs/Day Years Used Date Smoking Tobacco: Every Day Cigarettes Smokeless Tobacco: Never Alcohol Use Standard Drinks/Week Comments Yes 0 (1 standard drink = 0.6 oz pur e alcohol) Comments No Sex and Gender Information Value Date Recorded Sex Assigned at Not on file Legal Sex Female 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 Gender Identity Not on file Sexual Orientation Not on file documented as of this encounter Plan of Treatment Scheduled Referrals Name Type Priority Associated Diagnoses Orde r Schedule AMB REFERRAL TO NEUROSURGERY Outpatient Referral Routine Degeneration of intervertebral disc of lumbar region with discogenic back pain and lower extremity pain 1 Occurrences starting 05/05/2024 until 05/05/2025 documented as of this encounter Visit Diagnoses Diagnosis Degeneration of intervertebral disc of lumbar region with discogenic back pain and lower extremity pain- Primary documented in this encounter Care Teams Chief Of Production Relationship Specialty Start Date End Date Francine Solano APRN-RUSS [address] [place] [address] PCP - General 10/10/20 documented as of this encounter
--- OUTSIDE RECORDS SUMMARY | 2025-01-26 13:32 | XMS_ITS | Encounter Summary ---
Author Organization [facility] Address [address] [place] [address] Care Team Providers Care Print Operator Name Role Phone Francine Solano CASIE Primary Care Provider [phone] Encounter Details Date Type Department Care Team (Latest Contact Info) Description 09/21/2021 Coolio Message Enc [facility] Medical Group Multispecialty Care - [address], [address] [place] [address] [employer], [facility] Provider Pre-Appointment Labs Social History Tobacco Use Types Packs/Day Years Used Date Smoking Tobacco: Every Day Cigarettes 0.5 17 Smokeless Tobacco: Never Comments:provider to certified alcohol and drug counselor Alcohol Use Standard Drinks/Week Comments Yes 0 [...] suspected to have Coronavirus/COVID-19? No / Unsure 09/21/2021 10:16 AM CDT documented as of this encounter Plan of Treatment Not on file documented as of this encounter Visit Diagnoses Not on filedocumented in this encounter Additional Health Concerns Infection Onset Date Last Indicated Resolved Time COVID-19 Rule Out 09/21/2021 09/21/2021 09/21/2021 11:42 AM CDT COVID-19 Rule Out 09/11/2022 09/11/2022 09/12/2022 2:56 PM CDT Assessment Noted Time PHQ-9 Depression Total Score: 10 022 11:29 AM CDT documented as of this encounter Care Teams Print Operator Relationship Specialty Start Date End Date Francine Solano FNP [address] [address] PCP - General 12/06/16 documented as of this encounter
--- OUTSIDE RECORDS SUMMARY | 2025-01-26 13:32 | XMS_ITS | Encounter Summary ---
Author Organization [facility] Address [address] [place] [address] Care Team Providers Care Paper Deliverer Name Role Phone Francine Solano Primary Care Provider [phone] Encounter Details Date Type Department Care Team (Late st Contact Info) Description 06/28/2021 [employer] Message Enc [facility] Medical Group Family & Internal Medicine [address] [address] Francine Solano FNP [address] [place] [address] issues with medical care. Social History Tobacco Use Types Packs/Day Years Used Date Smoking Tobacco: Every Day Cigarettes 0.5 17 Smokeless Tobacco: Never Comments:provider to alcohol and drug counselor Alcohol Use Standard Drinks/Week Comments Yes 0 (1 standard drink = 0.6 oz pur e alcohol) occassional PHQ-2 Answer Date Recorded PHQ-2 Score - If the patient scores above 3, please move on to questions 3-9 0 06/29/2021 Comments No Sex and Gender Information Value Date Recorded Sex Assigned at Female 01/08/2025 2:02 PM CDT Legal Sex Female 6:52 PM CDT Gender Identity Not on file Sexual Orientation Not on file COVID-19 Exposure Response Date Recorded In the last month, have you been in contact with someone who was confirmed or suspected to have Coronavirus / COVID-19? No / Unsure 06/29/2021 10:51 AM BASKET MENDER documented as of this encounter Plan of Treatment Not on file documented as of this encounter Visit Diagnoses Not on filedocumented in this encounter Additional Health Concerns Infection Onset Date Last Indicated Resolved Time COVID-19 Rule Out 07/17/2021 07/17/2021 07/17/2021 12:20 PM BASKET MENDER COVID-19 Rule Out 09/21/2021 09/21/2021 09/21/2021 11:42 AM CDT COVID-19 Rule Out 09/11/2022 09/11/2022 09/12/2022 2:56 PM CDT Assessment Noted Time PHQ-9 Depression Total Score: 10 022 4:16 PM BASKET MENDER documented as of this encounter Care Teams Paper Deliverer Relationship Specialty Start Date End Date Francine Solano FNP [address] [place] [address] PCP - General 12/06/16 documented as of this encounter
--- OUTSIDE RECORDS SUMMARY | 2025-01-26 13:32 | XMS_ITS | Encounter Summary ---
Author Organization [facility] Address [address] [place] [address] Care Team Providers Care National Expansion Recruiter Name Role Phone Francine Solano Primary Care Provider [phone] Encounter Details Date Type Department Care Team (Late st Contact Info) Description 04/15/2023 Haofangtong Message Enc [facility] Medical Group Family Medicine - [place] [address] [place] [address] Isabel, [facility] Provider Screening Social History Tobacco Use Types Packs/Day Years Used Date Smoking Tobacco: Former Cigarettes 0.5 17 Smokeless Tobacco: Never Comments:provider to certified drug counselor // Patient down to 1 cig per day 02/01/22 Alcohol Use Standard Drinks/Week Comments Not Currently 0 (1 standard drink = 0.6 oz pur e alcohol) PHQ-2 Answer Date Recorded Patient Health Questionnaire-2 Score 0 01/14/2023 Comments No Sex and Gender Information Value Date Recorded Sex Assigned at Female 01/08/2025 2:02 PM CDT Legal Sex Female 6:52 PM CDT Gender Identity Not on file Sexual Orientation Not on file documented as of this encounter Plan of Treatment Not on file documented as of this encounter Visit Diagnoses Not on filedocumented in this encounter Additional Health Concerns Assessment Noted Time PHQ-9 Depression Total Score: 5 01/15/20 23 3:42 PM CDT documented as of this encounter Care Teams National Expansion Recruiter Relationship Specialty Start Date End Date Francine Solano FNP [address] [place] [address] PCP - General 12/06/16 documented as of this encounter
--- OUTSIDE RECORDS SUMMARY | 2025-01-26 13:32 | XMS_ITS | Clinical Summary ---
Author Organization [email or web address] Address [address] [place] [address] Care Team Providers Care Campground Caretaker Name Role Phone Francine Solano APRN-FILM MAKER Primary Care Provider [phone] Source Comments [facility],non-owned Affiliates and Associated Physician Practices is amultiple site organization consisting of ambulatory clinics and hospital sitesin [place], [place], [place] and [place]. This disclosure is being madepursuant to the Care Everywhere program and may not contain all information available regarding this patient. Last updated 18.[facility] Allergies Active Allergy Reactions Criticality Noted Date Comments Bupropion Psychiatric Medium 08/26/2020 Other reaction(s): Hallucinations Erythromycin Nausea and/or Vomiting Medium 09/11/2016 Ketorolac Tromethamine Skin Reactions Medium 09/11/2016 Tramadol Skin Reactions Medium 09/11/2016 Medications * Be aware that medications may not be up to date on this document. Alwaysverify current medications with the patient. methocarbamol (ROBAXIN) 750 MG tablet Take 750 mg by mouth 3X/day PRN. 15 tablet 0 7 Active Additional Information Patient not taking.Reported on 04/03/2021 meloxicam (MOBIC) 15 MG tablet Take 15 mg by mouth DAILY. 15 tablet 0 7 Active Additional Information Patient not taking.Reported on 04/03/2021 lidocaine (LIDODERM) 5 % patch Apply 1 patch to skin Now Then Every 24 Hours. 10 patch 0 03/28/201 7 Active Additional Information Patient not taking.Reported on 04/03/2021 cyclobenzaprine (FLEXERIL) 10 MG tablet Take 1 tablet by mouth at bedtime 1 Active mometasone-form oterol (DULERA) 200-5 MCG/ACT inhaler Inhale 2 puffs by mouth 2 times daily Active albuterol HFA (Proventil; Ventolin; Proair) 108 (90 Base) MCG/ACT inhaler INHALE 2 PUFFS INTO THE LUNGS BY MOUTH EVERY 4 HOURS NEEDED FOR WHEEZING 4 Active diazePAM (Valium) 2 MG tablet Take 1 (one) tablet by mouth once daily as needed 3 Active DULoxetine (Cymbalta) 20 MG capsule Take 1 (one) capsule by mouth 2 times daily 4 Active MV & Min w/FA-DHA ( ADULT GUMMY/DHA/FA PO) Take 2 Each by mouth once daily Active Active Problems Problem Noted Date Diagnosed Date Arthritis Estimated Date of Delivery Comme nts Yes 02/13/2025 Based on last me nstrual period of 05/09/2024 Family History Medical History Relation Name Comments Cancer - Colon Father Arthritis - Osteo Mother Hypertension Mother Relation Name Status Comments Father Mother Social History Tobacco Use Types Packs/Day Years Used Date Smoking Tobacco: Former Cigarettes Smokeless Tobacco: Never Tobacco Cessation:Counseling Given: Not Answered Alcohol Use Standard Drinks/Week Comments Not Currently 0 (1 standard drink = 0.6 oz pur e alcohol) [place] Depression Scale Answer Date Recorded [place] Depression Scale Total 12 08/11/2024 The thought of harming myself has occurred to me . 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 Gender Identity Not on file Sexual Orientation Not on file Last Filed Vital Signs Vital Sign Reading Time Taken Comments Blood Pressure 104/69 08/11/2024 1:53 PM METALLIC YARN SLITTING MACHINE OPERATOR Pulse 95 08/11/2024 1:53 PM METALLIC YARN SLITTING MACHINE OPERATOR Temperature 36.3 C (97.4 F) 05/07/2024 10:31 AM METALLIC YARN SLITTING MACHINE OPERATOR Respiratory Rate 18 04/03/2021 9:42 AM CDT Oxygen Saturation 98% 05/07/2024 10:31 AM METALLIC YARN SLITTING MACHINE OPERATOR Inhaled Oxygen Concentration - - Weight 60.3 kg (133 lb) 08/11/2024 1:53 PM METALLIC YARN SLITTING MACHINE OPERATOR Height 165.1 cm (5' 5) 08/11/2024 1:53 PM METALLIC YARN SLITTING MACHINE OPERATOR Body Mass Index 22.13 08/11/2024 1:53 PM METALLIC YARN SLITTING MACHINE OPERATOR Plan of Treatment Health Maintenance Due Date Last Done Comments LIPID TESTING 1982 HIV SCREENING 1997 DTAP/TDAP/TD VACCINES (1 - Tdap) 2001 HEPATITIS B VACCINE (1 of 3 - 19+ 3-dose series) 2001 HPV VACCINE (1 - 3-dose SCDM series) 2009 MAMMOGRAM 08/19/2020 08/19/2018 COVID-19 VACCINE (3 - 2023-2 5 season) 2024 07/05/2023, 12/07/2021 OB-ONE HOUR GLUCOSE 11/07/2024 OB-TDAP CURRENT 11/14/20242023, 08/12/2012 OB-RHOGAM INJECTION 11/21/2024 OB-GROUP B STREP SCREEN 01/09/2025 INFLUENZA VACCINE (#1) 2025 , 06/25/2022 PAP SMEAR 10/06/2026 10/07/2023, 10/07/2023 ZOSTER VACCINE (1 of 2) 2032 HEPATITIS C SCREENING Completed 07/12/2023 DEPRESSION SCREENING Completed 08/11/2024 HIB VACCINE Aged Out No longer eligi ble based on patient's age to complete this topic MENINGOCOCCAL (Group B) VACCINE SHARED DECISION-MAKING Aged Out No longer eligible based on patient's age to complete this topic MENINGOCOCCAL GROUPS A/C/Y/W VACCINE Aged Out No longer eligible b ased on patient's age to complete this topic PNEUMOCOCCAL VACCINE Aged Out No long er eligible based on patient's age to complete this topic Respiratory Syncytial Virus (RSV) Vaccine Pt: or over 60 yrs (No Doses Required) Completed Insurance [facility] Care Teams Campground Caretaker Relationship Specialty Start Date End Date Francine Solano APRN-CNP [address] [place] [address] PCP - General 10/10/20
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
--- OUTSIDE RECORDS SUMMARY | 2025-01-26 13:32 | XMS_ITS | Encounter Summary ---
Author Organization [facility] Address [address] [place] [address] Care Team Providers Care Guinea Pig Breeder Name Role Phone Francine Solano Primary Care Provider [phone] Encounter Details Date Type Department Care Team (Late st Contact Info) Description 12/12/2022 MyChart Message Enc [facility] - [facility] [address] [place], [place] [phone] Mychart, [facility] Provider Air Quality Message Social History Tobacco Use Types Packs/Day Years Used Date Smoking Tobacco: Every Day Cigarettes 0.5 17 Smokeless Tobacco: Never Comments:provider to family service counselor // Patient down to 1 cig per day 02/01/22 Alcohol Use Standard Drinks/Week Comments Yes 0 (1 standard drink = 0.6 oz pur e alcohol) occassional PHQ-2 Answer Date Recorded Patient Health Questionnaire-2 Score 3 12/11/2022 Comments No Sex and Gender Information Value Date Recorded Sex Assigned at Female 01/08/2025 2:02 PM CDT Legal Sex Female 6:52 PM CDT Gender Identity Not on file Sexual Orientation Not on file COVID-19 Exposure Response Date Recorded In the last 10 days, have yo u been in contact with someone who was confirmed or suspected to have Coronavirus/COVID-19? No / Unsure 11/30/2022 10:00 AM CDT documented as of this encounter Plan of Treatment Not on file documented as of this encounter Visit Diagnoses Not on filedocumented in this encounter Additional Health Concerns Assessment Noted Time PHQ-9 Depression Total Score: 20 023 1:42 PM CDT documented as of this encounter Care Teams Guinea Pig Breeder Relationship Specialty Start Date End Date Francine Solano FNP [address] [place] [address] PCP - General 12/06/16 documented as of this encounter
[2025-01-26 13:45] VITALS: BP 102/64; PULSE 84
[2025-01-26 14:00] VITALS: BP 102/79; PULSE 113
[2025-01-26 14:15] VITALS: BP 104/69; PULSE 78
[2025-01-26 14:30] VITALS: BP 97/63; PULSE 73
[2025-01-26 14:40] VITALS: BMI 23.6
[2025-01-26 14:45] VITALS: BP 106/70; PULSE 79
--- NOTE | 2025-01-26 15:03 | LDADM ---
This patient, Candy Good, was admitted to Labor/Delivery/Recovery 106 on 01/26/25 at 13:07. Patient/family oriented to hospital policies and general routines including ID bracelet, bed and alarms, visiting hours, pain management, procedures, bathroom and other care routines, personal items, smoking policy, room service/diet and guest tray routines, infant security routines, and visiting hours. Patient/Family are encouraged to report perceived risks to care and to ask questions if they do not understand what they are told or what they should do. See OBIX for further documentation.
--- NOTE | 2025-01-28 07:57 | PM.OBTRLD ---
OB - Triage/Final Diagnosis Visit Information Reason for evaluation: threatened labor Comments/Additional reasons for admission: I have assessed the risk for this patient, Candy Gagnon Florentino, and determined that she would benefit from observation care.
== END 2025-01-26 15:06 | disposition home or self-care (01) ==
PROVIDERS: Admitting Provider Obstetrics & Gynecology; PCP Nurse Practitioner Family; Visit Provider Obstetrics & Gynecology Gynecology
DX: O47.1 False labor at or after 37 completed weeks of gestation (principal); Z3A.38 38 weeks gestation of pregnancy
CPT/HCPCS: G0378; G0379

== ENCOUNTER 2025-01-27 05:56 | Inpatient (IN) | payer OTHER, SELFPAY ==
[2025-01-27] VITALS (127 sets, daily range): BP systolic 86–205; BP diastolic 43–176; PULSE 25–165; RESP 16–18; TEMP 36.2–36.7; O2SAT 81–100; BMI 24.0
--- OUTSIDE RECORDS SUMMARY | 2025-01-27 06:20 | XMS_ITS | Continuity of Care Document ---
Author Organization [facility] Address [address] [place] [address] Phone Care Team Providers Care Extrusion Press Adjuster Name Role Phone MD DEISI, NICHOLE Unavailable Unavailable Advance Directives Directive Yes / No Effective Date File Name No Information Encounters Encounter Description Practice Location Reason(s) For Visit Diagnoses Date Provider Providers Copied on Encounter [facility], [facility], [address] [place], [address], [place] tel:[phone] [facility] No Information MD NICHOLE LIPSCOMB. [address], [place], [place], [id number], [place]. tel:[phone] Referring Provider: COLLIN Stone, [address], [place], [address]. tel:[phone] Family History Family Member Type Diagnosis Age At Onset No Information Payers Payer name Insurance type Covered green party ID Authoriza tion(s) [facility] [place] INDEMNITY [facility] [id number] Social History Type Description Quantity Date Captured Comments Sex Female Smoking Status No Information Chief Complaint And Reason For Visit No Information History Of Present Illness Encounter Date Complaint History Of Prese nt Illness No Information Instructions Date Instruction Additional Infor mation No Information Assessments Type Assessment Date No Information
--- OUTSIDE RECORDS SUMMARY | 2025-01-27 06:21 | XMS_ITS | Encounter Summary ---
Author Organization [facility] Address [address] [place] [address] Care Team Providers Care Quality Process Auditor Name Role Phone Francine Solano Primary Care Provider [phone] Reason for Referral * Consultation (Routine) - Closed Specialty Diagnoses / Procedures Referred By Kalli downing Referred To Contact Neurological Surgery Diagnoses Degeneration of intervertebral disc of lumbar region with discogenic back pain and lower extremity pain Kelly Maldonado APRN-CNP [address] [place] [address] Phone: tel: fax: [facility] - Neurosurgery [address] [place] [address] [place] [address] Phone: tel: fax: Referral ID Status Reason Start Date Expiration Date V isits Requested Visits Authorized [id number] Closed Specialty Services Required 05/05/2024 05/05/2025 1 1 RUCTIONAL INTERVENTIONIST Encounter Details Date Type Department Care Team (Latest Contact Info) Description 05/05/2024 Transcribe Orders [facility] - Centralized Scheduling [address] [place] [phone] Kelly Maldonado APRN-CNP [address] [place] [address] Degeneration of intervertebral disc of lumbar region [...] on file Legal Sex Female 5:41 PM INSTRUCTIONAL INTERVENTIONIST Gender Identity Not on file Sexual Orientation [...] Primary documented in this encounter Care Teams Quality Process Auditor Relationship Specialty Start Date End Date Francine Solano APRN-RUSS [address] [place] [address] PCP - General 10/10/20 documented as of this encounter
--- OUTSIDE RECORDS SUMMARY | 2025-01-27 06:21 | XMS_ITS | Encounter Summary ---
Author Organization [facility] Address [address] [place] [address] Care Team Providers Care Employee Placement Specialist Name Role Phone Francine Solano Primary Care Provider [phone] Encounter Details Date Type Department Care Team (Late st Contact Info) Description 04/15/2023 [employer] Message Enc [facility] Family Medicine - [place] [address] [place] [address] Isabel, [facility] Provider Screening Social History Tobacco Use Types Packs/Day Years Used Date Smoking Tobacco: Former Cigarettes 0.5 17 Smokeless Tobacco: Never Comments:provider to debt management counselor // Patient down to 1 cig [...] documented as of this encounter Care Teams Employee Placement Specialist Relationship Specialty Start Date End Date Francine Solano FNP [address] [facility] [address] PCP - General 12/06/16 documented as of this encounter
--- OUTSIDE RECORDS SUMMARY | 2025-01-27 06:21 | XMS_ITS | Encounter Summary ---
Author Organization [facility] Address [address] [place] [address] Care Team Providers Care Janitorial Services Supervisor Name Role Phone Francine Solano CASIE Primary Care Provider [phone] Reason for Visit * Auth/Cert (Routine) Specialty Diagnoses / Procedures Referred By Contac t Referred To Contact Diagnoses Myofascial pain myalgia Procedures INJECT TRIGGER POINT, 1 OR 2 INJECT TRIGGER POINT, 1 OR 2 INJECTION TRIGGER POINT-lumbar Ebony Cedeno MD [address] [facility] [address] [place] [address] Phone: tel: fax: Referral ID Status Reason Start Date Expiration Date Visits Re quested Visits Authorized [id number] 1 1 Encounter Details Date Type Department Care Team (Late st Contact Info) Description 07/07/2024 Hospital Encounter [facility] [place], [place] [id number] Ebony Cedeno MD [address] [facility] [address] [place] [address] [phone] Social History Tobacco Use Types Packs/Day Years [...] 12:05 PM Violeta Cruz RN Active * Rainelle Suicide Severity Rating Scale (Screener/Recent Self-Report) Question [...] documented as of this encounter Care Teams Janitorial Services Supervisor Relationship Specialty Start Date End Date Francine Solano FNP [address] [place] [address] PCP - General 12/06/16 documented as of this encounter
--- OUTSIDE RECORDS SUMMARY | 2025-01-27 06:21 | XMS_ITS | Encounter Summary ---
Author Organization [facility] Address [address] [place] [address] Care Team Providers Care Materials Associate Name Role Phone Francine Solano Primary Care Provider Encounter Details Date Type Department Care Team (Late st Contact Info) Description 12/12/2022 MyChart Message Enc [facility] Medical Group - [facility] [address] [place], [place] [address] Mychart, [facility] Provider Air Quality Message Social History Tobacco [...] documented as of this encounter Care Teams Materials Associate Relationship Specialty Start Date End Date Francine Solano FNP [address] [place] [address] PCP - General 12/06/16 documented as of this encounter
--- OUTSIDE RECORDS SUMMARY | 2025-01-27 06:21 | XMS_ITS | Encounter Summary ---
Author Organization [facility] Address [address] [place] [address] Care Team Providers Care Electromechanical Engineer Name Role Phone Francine Solano CASIE Primary Care Provider [phone] Encounter Details Date Type Department Care Team (Late st Contact Info) Description 05/09/2022 [email or web address] Message Enc [facility] Medical Group Family & Internal Medicine [address] [address] Taylor Sal NP Culture results Social History Tobacco Use Types Packs/Day Years Used Date Smoking Tobacco: Every Day Cigarettes 0.5 17 Smokeless Tobacco: Never Comments:provider to summer counselor // Patient down to 1 cig [...] Coronavirus/COVID-19? No / Unsure 05/02/2022 10:16 AM HEEL REDUCER documented as of this encounter Plan of Treatment Not on file documented as of this encounter Visit Diagnoses Not on filedocumented in this encounter Additional Health Concerns Infection Onset Date Last Indicated Resolved Time COVID-19 Rule Out 09/11/2022 09/11/202209/12/2022 2:56 PM CDT Assessment Noted Time PHQ-9 Depression Total Score: 10 022 11:29 AM CDT documented as of this encounter Care Teams Electromechanical Engineer Relationship Specialty Start Date End Date Francine Solano FNP [address] [place] [address] PCP - General 12/06/16 documented as of this encounter
--- OUTSIDE RECORDS SUMMARY | 2025-01-27 06:21 | XMS_ITS | Encounter Summary ---
Author Organization [facility] Address [address] [place] [address] Care Team Providers Care Motor Equipment Captain Name Role Phone Francine Solano Primary Care Provider [phone] Encounter Details Date Type Department Care Team (Late st Contact Info) Description 06/28/2021 Arithmatica Message Enc [facility] Medical Group Family & Internal Medicine [address] [address] Francine Solano FNP [address] [place] [address] issues with medical care. Social History Tobacco Use Types Packs/Day Years Used Date Smoking Tobacco: Every Day Cigarettes 0.5 17 Smokeless Tobacco: Never Comments:provider to litigation counsel Alcohol Use Standard Drinks/Week Comments Yes 0 [...] COVID-19? No / Unsure 06/29/2021 10:51 AM TRADE SHOW MANAGER documented as of this encounter Plan of Treatment Not on file documented as of this encounter Visit Diagnoses Not on filedocumented in this encounter Additional Health Concerns Infection Onset Date Last Indicated Resolved Time COVID-19 Rule Out 07/17/2021 07/17/2021 07/17/2021 12:20 PM TRADE SHOW MANAGER COVID-19 Rule Out 09/21/2021 09/21/2021 09/21/2021 11:42 AM CDT COVID-19 Rule Out 09/11/2022 09/11/2022 09/12/2022 2:56 PM CDT Assessment Noted Time PHQ-9 Depression Total Score: 10 022 4:16 PM TRADE SHOW MANAGER documented as of this encounter Care Teams Motor Equipment Captain Relationship Specialty Start Date End Date Francine Solano FNP [address] [place] [address] PCP - General 12/06/16 documented as of this encounter
--- OUTSIDE RECORDS SUMMARY | 2025-01-27 06:21 | XMS_ITS | Clinical Summary ---
Author Organization [facility] [employer] Address [address] [facility] [place] [address] Care Team Providers Care Machine Ii Trimmer Name Role Phone Francine Solano APRN-CARDIOLOGY CONSULTANT Primary Care Provider [phone] Source Comments [facility] [employer],non-owned Affiliates and Associated Physician Practices is amultiple site organization consisting of ambulatory clinics and hospital sitesin [place], [place], [place] and [place]. This disclosure is being madepursuant to the Care Everywhere program and may not contain all information available regarding this patient. Last updated 18.[facility] [employer] Allergies Active Allergy Reactions Criticality Noted Date [...] drink = 0.6 oz pur e alcohol) [place] Depression Scale Answer Date Recorded [place] Depression Scale Total 12 08/11/2024 The thought of harming myself has occurred to me . Never 08/11/2024 Estimated Date of Delivery Comme nts Yes 02/13/2025 Based on last me nstrual period of 05/09/2024 Sex and Gender Information Value Date Recorded Sex Assigned at Not on file Legal Sex Female 5:41 PM KAITARA TARAKA Gender Identity Not on file Sexual Orientation Not on file Last Filed Vital Signs Vital Sign Reading Time Taken Comments Blood Pressure 104/69 08/11/2024 1:53 PM KAITARA TARAKA Pulse 95 08/11/2024 1:53 PM KAITARA TARAKA Temperature 36.3 C (97.4 F) 05/07/2024 10:31 AM KAITARA TARAKA Respiratory Rate 18 04/03/2021 9:42 AM CDT Oxygen Saturation 98% 05/07/2024 10:31 AM KAITARA TARAKA Inhaled Oxygen Concentration - - Weight 60.3 kg (133 lb) 08/11/2024 1:53 PM KAITARA TARAKA Height 165.1 cm (5' 5) 08/11/2024 1:53 PM KAITARA TARAKA Body Mass Index 22.13 08/11/2024 1:53 PM KAITARA TARAKA Plan of Treatment Health Maintenance Due Date [...] 60 yrs (No Doses Required) Completed Insurance [facility] Care Teams Machine Ii Trimmer Relationship Specialty Start Date End Date Francine Solano APRN-CNP [address] [place] [address] PCP - General 10/10/20
--- OUTSIDE RECORDS SUMMARY | 2025-01-27 06:21 | XMS_ITS | Encounter Summary ---
Author Organization [facility] Address [address] [place] [address] Care Team Providers Care Bindery Machine Setter/Set Up Operator Name Role Phone Francine Solano CASIE Primary Care Provider [phone] Encounter Details Date Type Department Care Team (Latest Contact Info) Description 09/21/2021 Elevation Lab Message Enc [facility] Medical Group Multispecialty Care - [address], [address] [place] [address] [facility] Provider Pre-Appointment Labs Social History Tobacco Use Types Packs/Day Years Used Date Smoking Tobacco: Every Day Cigarettes 0.5 17 Smokeless Tobacco: Never Comments:provider to eligibility counselor Alcohol Use Standard Drinks/Week Comments Yes [...] documented as of this encounter Care Teams Bindery Machine Setter/Set Up Operator Relationship Specialty Start Date End Date Francine Solano FNP [address] [place] [address] PCP - General 12/06/16 documented as of this encounter
--- OUTSIDE RECORDS SUMMARY | 2025-01-27 06:21 | XMS_ITS | Clinical Summary ---
Author Organization [facility] Address [address] [place] [address] Care Team Providers Care Retail Sales Manager Name Role Phone Raven Solano CASIE Primary Care Provider [phone] Allergies Active Allergy Reactions Criticality Noted Date [...] ( PLUS VITAMIN/MINERAL) 27-1 MG TabIndications:Pre gnancy ([facility]) Take 600 mcg by mouth daily. 90 [...] Date Arthritis 01/08/2025 35 weeks gestation of ([facility]) 2024 Myofascial pain 06/01/2024 Menorrhagia with regular [...] Description 01/08/2025 1:40 PM CDT Office Visit [facility] Medical [facility] Family & Internal Medicine [address] [phone] Raven Solano FNP Annual (Patient presenting to the office today for routine annual visit - ) 01/08/2025 Travel 01/04/2025 Telephone [facility] Family & Internal Medicine [address] [address] Raven Solano FNP Prior Authorization (Vraylar 1.5 mg capsule) 11/21/2024 Scan [facility] INFO SRVCS Scanned, Doc [facility] 11/19/2024 Telephone [facility] Family & Internal Medicine [address] [address] Raven Solano FNP Conjunctivitis from Last 3 [...] d @ 57 Kidney Disease Maternal Grandmother [place], vas culitis, disease Hypertension Mother Relation Status [...] Hepatitis C Completed 07/12/2023, 06/27/2021 PHQ-2 (Physician [place]) Completed 01/08/2025 RSV Immunization or 60+ Years [...] HEPATITIS C ANTIBODY Routine 07/12/2023 8:45 AM HEPATOLOGY PHYSICIAN Potential exposure to STD MG DIAG IMPLANT W ELISSA LT DIGI Routine 08/22/2020 2:59 PM HEPATOLOGY PHYSICIAN Breast mass, left from Last 3 Months or Most Recently Relevant to Health Maintenance Results * PAP SMEAR WITH HPV (10/13/2023) 10/13/2023 us [facility] Scanned SCANNING Final Resu lt * Cytopath Cerv/Vag Thin Layer (10/07/2023 3:37 PM CDT) THIN PREP PAP [address] [address] Department of Pathology Pathology Report CERVICAL/VAGINAL PAP SMEAR REPORT Name: CANDY ALEJANDRO Age: 5 1980 (Age: 42) Location: [facility] Sex: F Collected Date: 10/07/2023 [facility] #: [id number] Date Received: 10/08/2023 Date Reported: 10/13/2023 Provider: RAVEN SOLANO FIBERGLASS SKI MAKER-C INTERPRETATION CERVICAL/ENDOCERVI MARIJA: SATISFACTORY FOR EVALUATION. ENDOCERVICAL/TRANS [...] is not effective in detecting cervical adenocarcinoma. [facility] 10/07/2023 3:37 PM CDT 10/08/2023 3:37 PM CDT Comment:CERVICAL/ENDOCERVICA L us Raven JASON PATHOLOGY/CYTOLOGY ORDERABLES Final Result [facility] [address] [place] [address], * HEPATITIS C ANTIBODY ([facility] ONLY) (07/12/2023 8:45 AM HEPATOLOGY PHYSICIAN) HEPATITIS C AB NON-REACTI VE NON-REACT MARIANGEL 07/12/2023 6:57 PM HEPATOLOGY PHYSICIAN [facility] Comment: ANTIBODIES TO HCV NOT DETECTED. DOES NOT EXCLUDE THE POSSIBILITY OF EXPOSURE TO HCV. 07/12/2023 8:45 AM HEPATOLOGY PHYSICIAN us Raven JSAON LABORATORY Final Result [facility] [address] [place] [address], [id number] * MG DIAG IMPLANT W ELISSA LT DIGI (08/22/2020 2:59 PM HEPATOLOGY PHYSICIAN) Anatomical Region Laterality Modality Breast Left Mammography 08/22/2020 3:05 PM HEPATOLOGY PHYSICIAN Impressions 08/22/2020 4:58 PM HEPATOLOGY PHYSICIAN =====IMPRESSION:===== No mammographic or sonographic evidence of [...] 08/22/2020 3:05 PM Narrative 08/22/2020 4:58 PM HEPATOLOGY PHYSICIAN EXAMINATION: Digital left diagnostic mammogram with tomosynthesis [id number] EXAM DATE/TIME: 08/22/2020 2:31 PM REASON FOR [...] Most Recently Relevant to Health Maintenance Insurance [employer]ERN[employer] Advance Directives Documents on File Type Date Recorded 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
--- NOTE | 2025-01-27 06:56 | P.HP_ITS ---
H&P: HPI History of Present Illness Date/Time: 01/27/25 06:56 Chief Complaint: Thirty 8 weeks gestation with increased loss of a tree and IUGR Narrative: This 44-year-old 5 para 4 last menstrual period was 05/09/2024, EDC is 02/11/2025, confirmed by early ultrasound elsewhere presents at 38 weeks gestation for induction of labor secondary to elevated blood loss symmetry and IUGR. She is negative for group B strep. She failed her 1hour diabetic test but passed her 3 hour. Review of Systems Review of Systems: CONSTITUTIONAL: Denies fever, chills, or sweats. EYES: Denies visual changes, redness, or discharge. Positive for left upper eyelid swelling and pain blurry vision. ENT: Denies rhinorrhea, congestion, sore throat, or otalgia. CARDIOVASCULAR: Denies chest pain, palpitations, or edema. RESPIRATORY: Denies cough or dyspnea. GASTROINTESTINAL: Denies abdominal pain, nausea, vomiting, or diarrhea. GENITOURINARY: Denies dysuria or hematuria. SKIN: Denies rash or itching. MUSCULOSKELETAL: Denies back pain, joint pain, or myalgia. NEUROLOGIC: Denies headache, numbness, or weakness. PSYCHIATRIC: Denies anxiety or depression. All other systems reviewed are negative, except as documented in HPI. [facility] Past Medical History Medical History Bulging disc Hx of spinal stenosis Hx of bipolar disorder Asthma Endometriosis Degenerative disc disease Arthritis PTSD (post-traumatic stress disorder) Surgical History Surgical History Hx of heart surgery H/O breast augmentation H/O laparoscopy for endometriosis S/P cervical spinal fusion C6-C7 Family History Family History Father Carcinoma of colon Grandparent Brain aneurysm Other Cerebrovascular accident Social History Social History Smoking status: Current every day smoker Tobacco type: e-cigarettes/vaping Alcohol intake: former Substance use: current Substance use type: marijuana Lack of Transportation: No Lack of Food: Never True Current Housing: I Have Housing Concerned About Future Housing: No Difficulty Paying Gas/Electric Bills: No Difficulty Paying for Meds: No Currently Unemployed: YES Education: Grade School Difficulty w/ Childcare or Family Care: No Gender identity (if verbalized by the patient): Female Meds Home Medications and Allergies Home Medications ?Medication ?Instructions ?Recorded ?Confirmed ?Type duloxetine 20 mg capsule,delayed mg PO 01/23/22 07/29/24 History release medical marijuana .Route 07/29/24 07/29/24 History vitamins 30 30 mg iron-10 cap PO 07/29/24 07/29/24 History mg iron-folic acid 1 mg-om3 capsule bacitracin 500 unit/gram eye 1 applic LEFT EYE BID 7 days #3.5 11/21/24 Rx ointment grams Allergies Allergy/AdvReac Type Severity Reaction Status Date / Time erythromycin base Allergy Unknown Unknown Verified 11/21/24 11:09 ketorolac Allergy Unknown Unknown Verified 11/21/24 11:09 tramadol Allergy Unknown Unknown Verified 11/21/24 11:09 buspirone (From BuSpar) Allergy Unknown Verified 11/21/24 11:09 Vital Signs Vital Signs - 24 hr 01/27/25 06:31 01/27/25 06:46 Pulse Rate 97 70 Blood Pressure 133/73 99/55 L Exam Const: General: cooperative, healthy appearing and comfortable Nutritional Appearance: average body habitus Orientation/consciousness: oriented to person, oriented to place and oriented to time HENMT: Head: normal to inspection Resp: Effort & Inspection: normal respiratory effort Cardio: Rate: regular rate Rhythm: regular rhythm Heart sounds: S1 normal heart sound present and S2 normal heart sound present GI: Inspection: normal to inspection (Gravid soft uterus) : External Female Exam: normal external appearance Speculum Exam - Vagina: normal appearance of the vagina Speculum Exam - Cervix: normal appearance of the cervix (Cervix 2/50/1. AROM clear. FHTs reassuring) Assessment and Plan Assessment and plan (1) Term : Code(s): Z34.90 - Encounter for supervision of normal , unspecified, unspecified trimester Status: Acute (2) IUGR (intrauterine growth restriction): Status: Acute Plan Medical induction of labor. Spontaneous vaginal delivery is expected. She is an epidural candidate
[2025-01-27 07:14] LABS: Hematocrit 32.4 % (37.0-47.0); Hemoglobin 10.9 g/dL (12.0-15.0); Immature Granulocyte Percent A 1.5 % (0-0.5); Lymphocytes Absolute Auto 1.94 K/mm3 (0.9-3.2); Mean Corpuscular HGB Conc 33.6 g/dl (32-36); Mean Corpuscular Hemoglobin 29.9 pg (26-34); Mean Corpuscular Volume 89.0 fl (80-100); Nucleated Red Blood Cells Absolute Auto 0.000 K/mm3 (0.0-0.012); Nucleated Red Blood Cells Perc 0.0 % (0.0-0.2); Platelet Count Result 176 k/mm3 (150-375); Red Blood Count 3.64 M/mm3 (4.2-5.4); White Blood Count 9.8 K/mm3 (4.5-10.0)
--- NOTE | 2025-01-27 07:22 | LDADM ---
This patient, Candy Good, was admitted to Labor/Delivery/Recovery 104 on 01/27/25 at 05:56. Plans for labor, pain management and were discussed with patient. Patient/family oriented to hospital policies and general routines including ID bracelet, bed and alarms, visiting hours, pain management, procedures, bathroom and other care routines, personal items, smoking policy, room service/diet and guest tray routines, infant security routines, and visiting hours. Patient/Family are encouraged to report perceived risks to care and to ask questions if they do not understand what they are told or what they should do. See OBIX for further documentation.
[2025-01-27] MEDS: LACTATED RINGERS 1,000 ML 125 ML IV CONT ×2 (07:30→15:07)
[2025-01-27] MEDS: OXYTOCIN 30 UNITS/NS 500 ML 30 UNITS/500 ML BAG IV CONT (07:30)
[2025-01-27 08:39] LABS: Syphilis IgG/IgM Antibody Non-Reactive (Nonreactive)
[2025-01-27] MEDS: ONDANSETRON INJ 4 MG/2 ML VIAL IV PUSH ×2 (11:05→16:43)
[2025-01-27] MEDS: fentaNYL CITRATE INJ (*CRX) 100 MCG/2 ML VIAL IV PUSH ×2 (11:26→12:50)
--- NOTE | 2025-01-27 11:57 | PM.OBPNLAB ---
Pain Control Date/time seen: 01/27/25 11:57 Pain control: tolerating well Pelvic Exam Dilation (cm): 3 Contractions Monitor mode: Internal
[2025-01-27] MEDS: LACTATED RINGERS 500 ML 999 ML IV CONT (12:05)
--- NOTE | 2025-01-27 12:51 | P.PNAN_ITS ---
Anes - Initial Pre Proc Eval Date/Time: 01/27/25 12:51 Surgeon: Parth Bustillos MD Pre Op Diagnosis: IOL Patient Data Age: 44 Gender: F Height: 1.65 m Weight: 65.5 kg Last Vital Signs Temp 36.5 C 01/27/25 12:30 Pulse 75 01/27/25 12:49 BP 114/82 01/27/25 12:49 Pulse Ox 100 01/27/25 12:49 O2 Del Method Room Air 01/27/25 07:19 Allergies Allergy/AdvReac Type Severity Reaction Status Date / Time erythromycin base Allergy Unknown Unknown Verified 11/21/24 11:09 ketorolac Allergy Unknown Unknown Verified 11/21/24 11:09 tramadol Allergy Unknown Unknown Verified 11/21/24 11:09 buspirone (From BuSpar) Allergy Unknown Verified 11/21/24 11:09 Home Medications ?Medication ?Instructions ?Recorded ?Confirmed ?Type duloxetine 20 mg capsule,delayed mg PO 01/23/22 07/29/24 History release medical marijuana .Route 07/29/24 07/29/24 History vitamins 30 30 mg iron-10 cap PO 07/29/24 07/29/24 History mg iron-folic acid 1 mg-om3 capsule bacitracin 500 unit/gram eye 1 applic LEFT EYE BID 7 days #3.5 11/21/24 Rx ointment grams Laboratory Tests 01/27/25 07:07 WBC 9.8 K/mm3 (4.5-10.0) RBC 3.64 L M/mm3 (4.2-5.4) Hgb 10.9 L D g/dL (12.0-15.0) Hct 32.4 L % (37.0-47.0) MCV 89.0 fl (80-100) MCH 29.9 pg (26-34) MCHC 33.6 g/dl (32-36) RDW 12.5 % (11.5-14.5) Plt Count 176 k/mm3 (150-375) MPV 11.0 H fl (7.4-10.4) Immature Gran % (Auto) 1.5 H % (0-0.5) Neut % (Auto) 64.7 % (45.5-73.1) Lymph % (Auto) 19.8 % (18.3-44.2) [place] % (Auto) 12.7 H % (2.6-8.5) Eos % (Auto) 0.6 % (0-4.4) Baso % (Auto) 0.7 % (0.2-1.2) Lymph # (Auto) 1.94 K/mm3 (0.9-3.2) [place] # (Auto) 1.3 H K/mm3 (0.1-0.6) Eos # (Auto) 0.1 K/mm3 (0-0.3) Baso # (Auto) 0.1 K/mm3 (0.0-0.1) Abs Immat Gran (auto) 0.15 H K/mm3 (0.00-0.031) Absolute Neuts (auto) 6.3 K/mm3 (1.3-6.7) Absolute Nucleated RBC 0.000 K/mm3 (0.0-0.012) Nucleated RBC % 0.0 % (0.0-0.2) Syphilis IgG/IgM Ab Non-reactive (Nonreactive) Blood Type O Positive Antibody Screen Negative Patient hx anesthesia problems: none Family hx anesthesia problems: none Results Review: All pre-operative results and documents have been reviewed as part of the pre- operative evaluation. [facility] Past Medical History Medical History Bulging disc Hx of spinal stenosis Hx of bipolar disorder Asthma Endometriosis Degenerative disc disease Arthritis PTSD (post-traumatic stress disorder) Surgical History Surgical History Hx of heart surgery H/O breast augmentation H/O laparoscopy for endometriosis S/P cervical spinal fusion C6-C7 Family History Family History Father Carcinoma of colon Grandparent Brain aneurysm Other Cerebrovascular accident Social History Social History Smoking status: Never smoker Tobacco type: e-cigarettes/vaping Second hand tobacco smoke exposure: No Alcohol intake: former Substance use: current Substance use type: marijuana Last use: 01/27/25 Lack of Transportation: No Lack of Food: Never True Current Housing: I Have Housing Concerned About Future Housing: No Difficulty Paying Gas/Electric Bills: No Difficulty Paying for Meds: No Currently Unemployed: No Education: Grade School Difficulty w/ Childcare or Family Care: No Gender identity (if verbalized by the patient): Female Spiritual care concerns: No Anes - Eval Final PreProcedure Day of Procedure 01/27/25 12:51 Patient weight: normal Heart: regular rate and rhythm Lungs: decreased breath sounds Neurological: alert and oriented Last oral intake: >/= 8 hours ASA classification: III Emergent: no Anesthetic plan: proceed Anesthesia type and monitoring: regional epidural and standard monitoring Results Review: All pre-operative results and documents have been reviewed as part of the pre- operative evaluation. Informed Consent: The patient's anesthetic plan and its attendant risks and benefits were discussed with the patient/family/POA. Questions were solicited and answers provided to the satisfaction of the patient/family/POA.
[2025-01-27 14:27] LABS: Cannabinoid Screen Urine Positive (Negative)
--- NOTE | 2025-01-27 16:19 | PM.OBPNLAB ---
Pain Control Date/time seen: 01/27/25 16:19 Pain control: tolerating well and epidural Pelvic Exam Dilation (cm): 5 Effacement (%): 90 station: -1 Contractions Monitor mode: Internal
[2025-01-27] MEDS: OXYTOCIN 30 UNITS/NS 500 ML 30 UNITS/500 ML BAG 999 UNITS IV CONT (17:36)
--- NOTE | 2025-01-27 17:42 | PM.OBPRVD ---
OB - Vaginal Delivery Note Procedure Delivery date: 01/27/25 Events: Intrauterine Growth Restriction (IUGR) Induction method: AROM Delivery augmentation: Pitocin Delivery monitor: External FHT and Internal Uterine Route of delivery: Episiotomy description: None Laceration Description: None Specimen: No Quantitative Blood Loss (ml): 62 Anesthesia type: Epidural Disposition: Floor Complications: No immediate complications Narrative: The patient was admitted at 38 weeks gestation for induction of labor secondary to elevated umbilical cord Dopplers and IUGR. She had epidural anesthesia placed, and when she was complete she pushed delivered head spontaneously in the LOUIS position. Anterior posterior shoulder delivered spontaneously. Cord clamped x2 and cut infant placed in warmer given Apgars of blank placenta delivered intact spontaneously. Twenty of Pitocin placed the IV to help firm the uterus after speculum sidewalls no tears or lacerations were noted. There were no complications [place] Baby Date of : 02/17/25 Time of : 17:32 Gestational Age by Date: 40 gender: Male presentation: vertex position: Right Occiput Anterior Placenta delivery description: Spontaneous Cord Vessel Description: 3 Vessels
--- NOTE | 2025-01-27 17:44 | PM.DS ---
DS: Admitting Diagnosis Discharge Date 01/29/2025 Admitting Diagnosis Term /IUGR DS: Discharge Diagnosis Discharge Diagnosis (1) Term : Code(s): Z34.90 - Encounter for supervision of normal , unspecified, unspecified trimester Status: Acute (2) IUGR (intrauterine growth restriction): Status: Acute DS: Summary Hospital Course Reason for hospitalization: Patient was admitted for induction of labor secondary to elevated Doppler flow and IUGR she underwent spontaneous vaginal delivery at 5:32 p.m. on 01/27/2025 Hospital Course: Patient's hospital course unremarkable. She remained afebrile. She was up, voiding without difficulty, eating regular diet, ambulating, and generally without complaints. Time Spent with Patient Time attestation: Total time spent providing and/or coordinating discharge services: Exam Const: General: cooperative, healthy appearing and comfortable Nutritional Appearance: average body habitus Orientation/consciousness: oriented to person, oriented to place and oriented to time HENMT: Head: normal to inspection Resp: Effort & Inspection: normal respiratory effort Cardio: Rate: regular rate Rhythm: regular rhythm Heart sounds: S1 normal heart sound present and S2 normal heart sound present GI: Inspection: normal to inspection DS: Data Data Completed and Pending Labs on day of discharge: Labs from last 24 hours 01/27/25 01/27/25 13:46 07:07 WBC 9.8 RBC 3.64 L Hgb 10.9 L D Hct 32.4 L MCV 89.0 MCH 29.9 MCHC 33.6 RDW 12.5 Plt Count 176 MPV 11.0 H Immature Gran % (Auto) 1.5 H Neut % (Auto) 64.7 Lymph % (Auto) 19.8 [place] % (Auto) 12.7 H Eos % (Auto) 0.6 Baso % (Auto) 0.7 Lymph # (Auto) 1.94 [place] # (Auto) 1.3 H Eos # (Auto) 0.1 Baso # (Auto) 0.1 Abs Immat Gran (auto) 0.15 H Absolute Neuts (auto) 6.3 Absolute Nucleated RBC 0.000 Nucleated RBC % 0.0 Urine Opiates Screen Negative Urine Methadone Screen Negative Ur Barbiturates Screen Negative Ur Phencyclidine Scrn Negative Ur Amphetamine Screen Negative U Benzodiazepines Scrn Negative Urine Cocaine Screen Negative U Cannabinoids Screen Positive A Syphilis IgG/IgM Ab Non-reactive Blood Type O Positive Antibody Screen Negative Discharge Plan Discharge Attending physician on discharge: Parth Marks Discharging Clinician: Parth Marks Patient Disposition: Home Activity: no straining and pelvic rest Diet: as tolerated Wound Care Instructions: follow printed instructions Patient Instructions: Antibiotic Form Patient Language: Kinyarwanda Stand Alone Forms: General Discharge Information Follow-up/Referrals: Parth Marks MD [Physician] - Discharge Medications: Continued bacitracin 500 unit/gram ointment 1 applic LEFT EYE BID 7 Days Qty: 3.5 0RF PNV [id number] 30 mg iron-10 mg iron-1 mg capsule PO medical marijuana .Route Rx Instructions: as directed duloxetine 20 mg capsule,delayed release(DR/EC) PO Date of admission: 01/27/25 05:56 Primary Care Provider: SIVARAVEN Admitting Provider: Parth Marks Attending physician on admission: Parth Marks Condition: Stable
[2025-01-27] MEDS: OXYTOCIN 30 UNITS/NS 500 ML 30 UNITS/500 ML BAG 125 UNITS IV CONT (18:10)
[2025-01-27] MEDS: BENZOCAINE 20% AER SPR (*SP) 56 GM CAN 1 SPRAY TOPICAL (18:32)
[2025-01-27] MEDS: WITCH HAZEL 40 PADS 1 PAD TOPICAL (18:32)
[2025-01-27] MEDS: IBUPROFEN 600 MG TABLET PO (18:32)
--- NOTE | 2025-01-27 20:45 | OBPPTRN ---
Patient transferred to post room # via ( ). Support person present. Oriented to unit, room, information board, rooming in, admission packet and security measures. Patient verbalizes understanding.
--- NOTE | 2025-01-27 20:45 | OBPPTRN ---
Patient transferred to post room #284 via wheelchair. Support person present. Oriented to unit, room, information board, rooming in, admission packet and security measures. Patient verbalizes understanding.
--- NOTE | 2025-01-27 22:42 | PC.NURSE ---
Pt took own supply of home medication duloxetine 20mg PO ~2200.
[2025-01-28] MEDS: IBUPROFEN 600 MG TABLET PO ×3 (03:41→18:15)
[2025-01-28 04:00] VITALS: BP 116/69; PULSE 70; RESP 18; TEMP 36.6; O2SAT 99
[2025-01-28 04:39] LABS: Hematocrit 29.3 % (37.0-47.0); Hemoglobin 9.8 g/dL (12.0-15.0)
--- NOTE | 2025-01-28 06:39 | PM.OBPNVD ---
OB - PN: Subj Subjective Date/time seen: 01/28/25 06:39 Patient comments: no complaints and pain well controlled baby status: doing well OB - PN: Obj Data Labs 01/28/25 03:55 Labs: Laboratory Results - last 24 hr 01/27/25 01/27/25 01/28/25 07:07 13:46 03:55 WBC 9.8 RBC 3.64 L Hgb 10.9 L D 9.8 L Hct 32.4 L 29.3 L MCV 89.0 MCH 29.9 MCHC 33.6 RDW 12.5 Plt Count 176 MPV 11.0 H Immature Gran % (Auto) 1.5 H Neut % (Auto) 64.7 Lymph % (Auto) 19.8 [place] % (Auto) 12.7 H Eos % (Auto) 0.6 Baso % (Auto) 0.7 Lymph # (Auto) 1.94 [place] # (Auto) 1.3 H Eos # (Auto) 0.1 Baso # (Auto) 0.1 Abs Immat Gran (auto) 0.15 H Absolute Neuts (auto) 6.3 Absolute Nucleated RBC 0.000 Nucleated RBC % 0.0 Urine Opiates Screen Negative Urine Methadone Screen Negative Ur Barbiturates Screen Negative Ur Phencyclidine Scrn Negative Ur Amphetamine Screen Negative U Benzodiazepines Scrn Negative Urine Cocaine Screen Negative U Cannabinoids Screen Positive A Syphilis IgG/IgM Ab Non-reactive Blood Type O Positive Antibody Screen Negative OB - PN A/P Assessment and Plan (1) Term : Code(s): Z34.90 - Encounter for supervision of normal , unspecified, unspecified trimester Status: Acute Plan Comments: routine care Time Spent With Patient Time: Total time spent is greater than 50% in coordination of care (as documented) at patient's floor/unit and/or counseling patient: Review of Systems Review of Systems: CONSTITUTIONAL: Denies fever, chills, or sweats. EYES: Denies visual changes, redness, or discharge. Positive for left upper eyelid swelling and pain blurry vision. ENT: Denies rhinorrhea, congestion, sore throat, or otalgia. CARDIOVASCULAR: Denies chest pain, palpitations, or edema. RESPIRATORY: Denies cough or dyspnea. GASTROINTESTINAL: Denies abdominal pain, nausea, vomiting, or diarrhea. GENITOURINARY: Denies dysuria or hematuria. SKIN: Denies rash or itching. MUSCULOSKELETAL: Denies back pain, joint pain, or myalgia. NEUROLOGIC: Denies headache, numbness, or weakness. PSYCHIATRIC: Denies anxiety or depression. All other systems reviewed are negative, except as documented in HPI. Exam Const: General: cooperative, healthy appearing and comfortable Nutritional Appearance: average body habitus Orientation/consciousness: oriented to person, oriented to place and oriented to time HENMT: Head: normal to inspection Resp: Effort & Inspection: normal respiratory effort Cardio: Rate: regular rate Rhythm: regular rhythm Heart sounds: S1 normal heart sound present and S2 normal heart sound present GI: Inspection: normal to inspection
[2025-01-28 07:55] VITALS: BP 106/71; PULSE 74; RESP 18; TEMP 36.2; O2SAT 100
[2025-01-28] MEDS: MULTIVIT/MIN/PREN/FOL AC/IRON TABLET 1 TAB PO (10:02)
[2025-01-28] MEDS: DOCUSATE SODIUM 100 MG CAPSULE PO ×2 (10:03→18:15)
--- NOTE | 2025-01-28 11:15 | PC.NURSE ---
Met with patient regarding infant feedings. Baby has not eaten in over 5 hours. He is unswaddled, laying on the bed. She states that she is working to wake baby up and that she is going to get him fully undressed. Offered the option for the patient to pump at this time and give any milk she is able to express. Patient states that she isn't going to pump yet but that if she is unable to wake baby to eat she will go ahead and pump. Patient declines any further assistance with waking or feeding baby. She knows support is available to her today. Primary RN updated.
--- NOTE | 2025-01-28 12:32 | WPDANLDPN2 ---
Anes-Prog Note L&D Date/Time: 01/28/25 12:32 Comfortable throughout: labor and delivery Neuraxial method: epidural Epidural/Spinal procedure site: clean & non-tender Neuro status: Neuro function grossly intact. Cardiovascular status: normal Respiratory status: normal Airway patency: baseline Mental status: baseline Vital Signs: Last Vital Signs Temp 36.2 C L 01/28/25 07:55 Pulse 74 01/28/25 07:55 Resp 18 01/28/25 07:55 BP 106/71 01/28/25 07:55 Pulse Ox 100 01/28/25 07:55 O2 Del Method Room Air 01/27/25 07:19 Pain score (VAS): 0 I/O: Intake & Output 01/27/25 01/28/25 01/28/25 23:59 07:59 15:59 Intake Total 0 Output Total 87 Balance -87 Patient feedback: Patient satisfied with anesthetic care.
[2025-01-28 20:30] VITALS: BP 111/69; PULSE 83; RESP 14; TEMP 36.8; O2SAT 99
[2025-01-28] MEDS: CALCIUM CARBONATE (TUMS) 500 MG (200 MG ELEMENTAL) PO (20:45)
[2025-01-28] MEDS: ONDANSETRON HCL ODT 4 MG TABLET PO (20:45)
[2025-01-28] MEDS: ACETAMINOPHEN 325 MG TABLET 650 MG PO (20:45)
--- NOTE | 2025-01-29 06:31 | P.PNOB_ITS ---
OB - PN: Subj Subjective Date/time seen: 01/29/25 06:31 Patient comments: no complaints and pain well controlled baby status: doing well OB - PN: Obj Data Labs 01/28/25 03:55 OB - PN A/P Assessment and Plan (1) Term : Code(s): Z34.90 - Encounter for supervision of normal , unspecified, unspecified trimester Status: Acute Plan home Time Spent With Patient Time: Total time spent is greater than 50% in coordination of care (as documented) at patient's floor/unit and/or counseling patient: Review of Systems 2 Review of Systems: CONSTITUTIONAL: Denies fever, chills, or sweats. EYES: Denies visual changes, redness, or discharge. Positive for left upper eyelid swelling and pain blurry vision. ENT: Denies rhinorrhea, congestion, sore throat, or otalgia. CARDIOVASCULAR: Denies chest pain, palpitations, or edema. RESPIRATORY: Denies cough or dyspnea. GASTROINTESTINAL: Denies abdominal pain, nausea, vomiting, or diarrhea. GENITOURINARY: Denies dysuria or hematuria. SKIN: Denies rash or itching. MUSCULOSKELETAL: Denies back pain, joint pain, or myalgia. NEUROLOGIC: Denies headache, numbness, or weakness. PSYCHIATRIC: Denies anxiety or depression. All other systems reviewed are negative, except as documented in HPI. Exam 2 Const: General: cooperative, healthy appearing and comfortable Nutritional Appearance: average body habitus Orientation/consciousness: oriented to person, oriented to place and oriented to time HENMT: Head: normal to inspection Resp: Effort & Inspection: normal respiratory effort Cardio: Rate: regular rate Rhythm: regular rhythm Heart sounds: S1 normal heart sound present and S2 normal heart sound present GI: Inspection: normal to inspection
[2025-01-29] MEDS: DOCUSATE SODIUM 100 MG CAPSULE PO (08:06)
[2025-01-29] MEDS: LANOLIN (LANSINOH) 7.5 GM CREAM 1 APPLIC TOPICAL (08:07)
[2025-01-29] MEDS: IBUPROFEN 600 MG TABLET PO (08:07)
[2025-01-29] MEDS: MULTIVIT/MIN/PREN/FOL AC/IRON TABLET 1 TAB PO (08:07)
[2025-01-29 08:15] VITALS: BP 122/83; PULSE 67; RESP 18; TEMP 36.9; O2SAT 98
--- NOTE | 2025-01-29 11:40 | PC.NURSE ---
Patient viewed the discharge video Mother & Baby Care, The First Two Weeks online. Patient was given the opportunity and encouraged to ask questions. Patient verbalized understanding of information shared and has been given the mother/baby guide for home reference.
[2025-01-30 11:31] VITALS: BP 129/88; PULSE 88; RESP 18; TEMP 36.8; O2SAT 100
== END 2025-01-29 12:11 | disposition home or self-care (01) | DRG 560 ==
LOC: ANHLDR 17:47 → ANHOB2 20:47
PROVIDERS: Admitting Provider Obstetrics & Gynecology; PCP Nurse Practitioner Family; Visit Provider Obstetrics & Gynecology
DX: O36.5930 Maternal care for other known or suspected poor fetal growth, third trimester, not applicable or unspecified (principal); Z37.0 Single live birth; Z79.899 Other long term (current) drug therapy; Z3A.38 38 weeks gestation of pregnancy
CPT/HCPCS: 36415; 80307; 85014; 85018; 85025; 86593; 86850; 86900; 86901; A9270; J1200; J2405; J2590; J2795; J3010; J7120